=== PATIENT | female | born 1960 | race Caucasian/White ===

== ENCOUNTER 2022-04-15 10:46 | Outpatient (REF) | payer MEDICAID, SELFPAY ==
--- NOTE | ~2022-04-15 | XR_ITS ---
EXAMINATION: XR CERVICAL SPINE CLINICAL INFORMATION: Neck pain. COMPARISON: None TECHNIQUE: 5 views views of the cervical spine were obtained. FINDINGS: There is mild straightening of the cervical lordosis. The vertebral heights are normal. There is grade 1 retrolisthesis of C4 over C5. There is loss of C4-C5, C5-C6 disc levels with moderate ventral spondylosis. No visible acute fracture, dislocation or lytic process is seen. There is left neural foraminal narrowing at C3-C4 and right C5-C6 from uncovertebral hypertrophic changes. No visible acute fracture or dislocation is seen. XR/XR cervical spine 4V IMPRESSION: 1. Degenerative disc changes C4-C5 and C5-C6 disc levels with moderate ventral spondylosis. No visible acute fracture, dislocation or subluxation seen. 2. There is bilateral neural foraminal narrowing as described above. 3. No aggressive lytic or sclerotic process is seen.
== END 2022-04-15 10:47 | disposition home or self-care (01) ==
LOC: HO.XRAY 10:46
PROVIDERS: Absent Provider Internal Medicine Geriatric Medicine; PCP Internal Medicine Geriatric Medicine; Visit Provider Emergency Medicine
DX: M54.2 Cervicalgia (principal)
CPT/HCPCS: 72050

== ENCOUNTER 2023-03-08 06:23 | Day surgery (SDC) | payer OTHER, SELFPAY ==
[2023-03-03 09:44] VITALS: BMI 25.2
--- NOTE | 2023-03-05 07:34 | MHC.SHP ---
Pre-Procedural Eval Section A Date of Service: 03/05/23 The patient is an INPATIENT: No Changes since office visit: No Cold of Flu in the past 2 weeks, No New Medical Problems, No Changes in Medication and No Patient answered all questions The History & Physical has been completed within 30 days and I have reviewed it.: Yes Section B Chief Complaint: Age-related nuclear cataract, right eye Allergies: Allergies Allergy/AdvReac Type Severity Reaction Status Date / Time Penicillins [PENICILLINS] Allergy Intermediate RASH Verified 01/21/23 08:39 sodium pentathol (general AdvReac Intermediate extended Uncoded 01/21/23 08:35 anesth.) time to awaken post anesthesia Plan Diagnosis/Plan: Unchanged I have reviewed the history and physical and performed a pertinent physical examination on my patient. No changes have occurred unless specified. Time Spent With Patient Time: Total time managing care of this patient today ____ minutes.
--- NOTE | 2023-03-05 10:27 | HO.ANESPROP2 ---
Documented by User: Candace Huerta NP 03/05/23 10:27 HPI - Anesthesia Eval Consult details Narrative: 62yo F for Right Cataract Extraction IOL Insertion PCP cleared No previous cataract on record [facility] Past Medical History Medical History (Updated 03/03/23 @ 09:41 by Inna Renteria RN) Arthritis Back pain GERD (gastroesophageal reflux disease) Anxiety Murmur Elevated cholesterol HTN (hypertension) Surgical History Surgical History (Updated 03/03/23 @ 09:41 by Inna Renteria RN) Hx of carpal tunnel repair Hx of elbow surgery H/O colonoscopy Social History Social History Are you a primary child day care center worker to a significant other at home: No Do you presently have visiting nurse or other home services: No Patient Tobacco Use Status: Former Tobacco user Quit Date: 2021 Tobacco use type: Cigarette Years Smoked: 10 Use of substances other than those prescribed or required for medical reasons: Yes Substance Use Frequency: Occasionally Have you been hit, kicked, punched, or otherwise hurt by someone within the past year? If so, by whom?: No Are you DNR?: No Advance Directives: No (fiance is primary contact) Advance Directives Information Provided: Yes (brochure mailed) Advance Directives on File: No Recently lost weight without trying: No Eating poorly because of decreased appetite: No Nutrition Risks: No Nutritional Risk Poor oral hygiene: No Meds Allergies Allergy/AdvReac Type Severity Reaction Status Date / Time Penicillins [PENICILLINS] Allergy Intermediate RASH Verified 01/21/23 08:39 sodium pentathol (general AdvReac Intermediate extended Uncoded 01/21/23 08:35 anesth.) time to awaken post anesthesia Home Medications Medication Instructions Recorded Confirmed Last Taken Type acetaminophen 650 mg 1,300 mg PO Q8H PRN Pain 03/03/23 03/03/23 Unknown History tablet,extended release amlodipine 10 mg tablet 10 mg PO DAILY 03/03/23 03/03/23 03/08/23 History atenolol 50 mg tablet 50 mg PO DAILY 03/03/23 03/03/23 03/08/23 History multivitamin 1 tab PO DAILY 03/03/23 03/03/23 Unknown History mv-min-vit C-ascorb 1 tab PO DAILY 03/03/23 03/03/23 Unknown History Ja-Dan-Evm-herb #124 333 mg-1.7 mg chewable tablet (Airborne (ascorbate sodium)) omeprazole magnesium 20 mg 20 mg PO DAILY PRN Acid Reflux 03/03/23 03/03/23 Unknown History tablet,delayed release (Prilosec OTC) Exam Exam Date and Time: March 05, 2023 1027 Height,Weight and Vital Signs: Height 5 ft 5.5 in Weight 69.853 kg Assessment and Plan Assessment Anesthesia Assessment: Chart Reviewed Documented by User: Milly Samaniego MD 03/08/23 07:27 [facility] Past Medical History Medical History (Updated 03/03/23 @ 09:41 by Inna Renteria RN) Arthritis Back pain GERD (gastroesophageal reflux disease) Anxiety Murmur Elevated cholesterol HTN (hypertension) Family History Family history of problems with anesthesia: No Surgical History Surgical History (Updated 03/03/23 @ 09:41 by Inna Renteria RN) Hx of carpal tunnel repair Hx of elbow surgery H/O colonoscopy History of Problems with Anesthesia: No Social History Social History Are you a primary child day care center worker to a significant other at home: No Do you presently have visiting nurse or other home services: No Patient Tobacco Use Status: Former Tobacco user Quit Date: 2021 Tobacco use type: Cigarette Years Smoked: 10 Use of substances other than those prescribed or required for medical reasons: Yes Substance Use Frequency: Occasionally Have you been hit, kicked, punched, or otherwise hurt by someone within the past year? If so, by whom?: No Are you DNR?: No Advance Directives: No (fiance is primary contact) Advance Directives Information Provided: Yes (brochure mailed) Advance Directives on File: No Recently lost weight without trying: No Eating poorly because of decreased appetite: No Nutrition Risks: No Nutritional Risk Poor oral hygiene: No Meds Allergies Allergy/AdvReac Type Severity Reaction Status Date / Time Penicillins [PENICILLINS] Allergy Intermediate RASH Verified 01/21/23 08:39 sodium pentathol (general AdvReac Intermediate extended Uncoded 01/21/23 08:35 anesth.) time to awaken post anesthesia Home Medications Medication Instructions Recorded Confirmed Last Taken Type acetaminophen 650 mg 1,300 mg PO Q8H PRN Pain 03/03/23 03/03/23 Unknown History tablet,extended release amlodipine 10 mg tablet 10 mg PO DAILY 03/03/23 03/03/23 03/08/23 History atenolol 50 mg tablet 50 mg PO DAILY 03/03/23 03/03/23 03/08/23 History multivitamin 1 tab PO DAILY 03/03/23 03/03/23 Unknown History mv-min-vit C-ascorb 1 tab PO DAILY 03/03/23 03/03/23 Unknown History Ww-Gcm-Jpb-herb #124 333 mg-1.7 mg chewable tablet (Airborne (ascorbate sodium)) omeprazole magnesium 20 mg 20 mg PO DAILY PRN Acid Reflux 03/03/23 03/03/23 Unknown History tablet,delayed release (Prilosec OTC) Exam Airway Mallampati Class: II (missing multiple teeth top and bottom) TM Dist: >3cm Neck ROM: Full Heart: rrr Lungs: cta Assessment and Plan Assessment Anesthesia Assessment: Anesthesia Plan Discussed Final Anesthetic Review Family History of Problems with Anesthesia: No History of Problems with Anesthesia: No NPO: Yes ASA Class: II Final Preanesthetic Review: No Changes in Pt Med Stat, Meds/Allgs Chart Reviewed and Consent Obtained/Reviewed Patient Risk: Intermediate Procedure Risk: Intermediate Anesthetic Plan Anesthetic Plan: MAC: Disposition: Standard PACU
[2023-03-08 07:03] VITALS: BP 143/92; PULSE 65; RESP 18; TEMP 36.1; O2SAT 98; BMI 25.2
[2023-03-08] MEDS: Tetracaine HCl/PF 0.5% Oph Sol 4 ML DROPS 1 DROP EYE-RIGHT (07:13)
[2023-03-08] MEDS: Ketorolac Tromethamine 0.5% Op 5 ML DROPS 1 DROP EYE-RIGHT ×2 (07:14→07:18)
[2023-03-08] MEDS: Phenylephrine HCL 2.5% Oph SoL 2 ML BOTTLE 1 DROP EYE-RIGHT ×3 (07:14→07:19)
[2023-03-08] MEDS: Cyclopentolate 1 % Ophth Sol 2 ML DRPBTL 1 DROP EYE-RIGHT ×3 (07:14→07:20)
[2023-03-08] MEDS: Tropicamide 1 % Ophth Sol 3 ML BTL 1 DROP EYE-RIGHT ×3 (07:15→07:20)
[2023-03-08] MEDS: Lactated Ringers 500 ML 50 ML IV (07:21)
--- NOTE | 2023-03-08 07:53 | HO.PNOPHT ---
Ophthalmology Procedure Procedure Date of Service: 03/08/23 Ophthalmology Viscoelastic: Sukhdeep Brookst Dual Pack Pro Ophthalmology Lenses: TECDORIS [id number] (21) Procedure Notes: PREOPERATIVE DIAGNOSIS: Decreased visual acuity right eye secondary to cataract POSTOPERATIVE DIAGNOSIS: Same PROCEDURE: Right cataract extraction with intraocular lens insertion SURGEON: Mick Buckley M.D. ANESTHESIA: Topical/MAC ESTIMATED BLOOD LOSS: None COMPLICATIONS: None After obtaining informed consent, the patient was brought to the operating room suite and placed in the supine position. After adequate sedation per anesthesia, topical drops of Tetracaine were given to the right eye. The eye was then prepped and draped in the usual sterile fashion. The operating room microscope was then positioned over the operative eye and a lid speculum placed. A paracentesis was created. Viscoelastic was then instilled into the anterior chamber. A three plane incision was then created temporally, utilizing a 2.85 mm keratome. Capsulotomy forceps were then utilized to create a circular tear capsulotomy. Hydrodissection and hydrodelineation were carried out until adequate mobilization of the nucleus occurred. Phacoemulsification was then utilized to remove the dense central nucleus followed by removal of the cortical material utilizing the automated aspiration irrigation unit. Viscoelastic was instilled into the posterior capsular bag followed by placement of a posterior chamber intraocular lens without difficulty. The residual Viscoelastic was then removed utilizing the automated IA machine. The wound was checked and found to be watertight. The patient tolerated the procedure well and the lid speculum was removed. Intracameral injection of Vigamox 0.1 mL followed by a subtenon injection of Kenalog-40 0.2 mL were administered. The patient will be seen in the a.m.
[2023-03-08 08:18] VITALS: BP 127/80; PULSE 58; RESP 16; TEMP 36.1; O2SAT 98
== END 2023-03-08 08:26 | disposition home or self-care (01) ==
PROVIDERS: PCP Internal Medicine Geriatric Medicine; Visit Provider Ophthalmology
PROC: (CPT 66985; principal; 2023-03-08 08:20)
DX: H25.11 Age-related nuclear cataract, right eye (principal); H52.4 Presbyopia; Z83.511 Family history of glaucoma; H18.413 Arcus senilis, bilateral; H43.399 Other vitreous opacities, unspecified eye; R11.2 Nausea with vomiting, unspecified; I10 Essential (primary) hypertension; E78.00 Pure hypercholesterolemia, unspecified; E55.9 Vitamin D deficiency, unspecified; F41.1 Generalized anxiety disorder; Z79.899 Other long term (current) drug therapy; Z88.0 Allergy status to penicillin; Z88.8 Allergy status to other drugs, medicaments and biological substances; Z87.891 Personal history of nicotine dependence
CPT/HCPCS: 66984; J2250; J3301; V2632

== ENCOUNTER 2023-03-22 06:10 | Day surgery (SDC) | payer OTHER, SELFPAY ==
[2023-03-03 09:46] VITALS: BMI 25.2
--- NOTE | 2023-03-19 07:44 | MHC.SHP ---
Pre-Procedural Eval Section A Date of Service: 03/19/23 The patient is an INPATIENT: No Changes since office visit: No Cold of Flu in the past 2 weeks, No New Medical Problems, No Changes in Medication and No Patient answered all questions The History & Physical has been completed within 30 days and I have reviewed it.: Yes Section B Chief Complaint: Age-related nuclear cataract, left eye Allergies: Allergies Allergy/AdvReac Type Severity Reaction Status Date / Time Penicillins [PENICILLINS] Allergy Intermediate RASH Verified 01/21/23 08:39 sodium pentathol (general AdvReac Intermediate extended Uncoded 01/21/23 08:35 anesth.) time to awaken post anesthesia Plan Diagnosis/Plan: Unchanged I have reviewed the history and physical and performed a pertinent physical examination on my patient. No changes have occurred unless specified. Time Spent With Patient Time: Total time managing care of this patient today ____ minutes.
[2023-03-22 06:42] VITALS: BP 121/79; PULSE 64; RESP 18; TEMP 36.7; O2SAT 96
[2023-03-22] MEDS: Tetracaine HCl/PF 0.5% Oph Sol 4 ML DROPS 1 DROP EYE-LEFT (06:45)
[2023-03-22] MEDS: Ketorolac Tromethamine 0.5% Op 5 ML DROPS 1 DROP EYE-LEFT ×3 (06:46→06:56)
[2023-03-22] MEDS: Tropicamide 1 % Ophth Sol 3 ML BTL 1 DROP EYE-LEFT ×3 (06:46→06:56)
[2023-03-22] MEDS: Phenylephrine HCL 2.5% Oph SoL 2 ML BOTTLE 1 DROP EYE-LEFT ×3 (06:46→06:56)
[2023-03-22] MEDS: Cyclopentolate 1 % Ophth Sol 2 ML DRPBTL 1 DROP EYE-LEFT ×3 (06:51→06:56)
[2023-03-22] MEDS: Lactated Ringers 500 ML 50 ML IV (06:58)
--- NOTE | 2023-03-22 07:32 | HO.ANESPROP2 ---
[facility] Past Medical History Medical History Arthritis Back pain GERD (gastroesophageal reflux disease) Anxiety Murmur Elevated cholesterol HTN (hypertension) Family History Family history of problems with anesthesia: No Surgical History Surgical History Hx of carpal tunnel repair Hx of elbow surgery H/O colonoscopy History of Problems with Anesthesia: No Social History Social History Are you a primary adult live in caregiver to a significant other at home: No Do you presently have visiting nurse or other home services: No Patient Tobacco Use Status: Former Tobacco user Quit Date: 2021 Tobacco use type: Cigarette Years Smoked: 10 Use of substances other than those prescribed or required for medical reasons: Yes Substance Use Frequency: Occasionally Have you been hit, kicked, punched, or otherwise hurt by someone within the past year? If so, by whom?: No Are you DNR?: No Advance Directives: No (fiance is primary contact) Advance Directives Information Provided: Yes (brochure mailed) Advance Directives on File: No Recently lost weight without trying: No Eating poorly because of decreased appetite: No Nutrition Risks: No Nutritional Risk Poor oral hygiene: No Meds Allergies Allergy/AdvReac Type Severity Reaction Status Date / Time Penicillins [PENICILLINS] Allergy Intermediate RASH Verified 03/22/23 06:54 sodium pentathol (general AdvReac Intermediate extended Uncoded 03/22/23 06:54 anesth.) time to awaken post anesthesia Active Medications: Current Medications Lactated Ringer's (Lr) 500 mls @ 50 mls/hr IV .Q10H SILVANA Stop: 03/22/23 16:59 Last Admin: 03/22/23 06:58 Dose: 50 mls/hr Povidone Iodine (Povidone Iodine 5 % Ophth Soln 30 Ml Bottle) 1 appl EYE-LEFT PREOP PRN PRN Reason: Pre-Op Surgical Implant Prophy Home Medications Medication Instructions Recorded Confirmed Last Taken Type acetaminophen 650 mg 1,300 mg PO Q8H PRN Pain 03/03/23 03/03/23 Unknown History tablet,extended release amlodipine 10 mg tablet 10 mg PO DAILY 03/03/23 03/03/23 03/22/23 History atenolol 50 mg tablet 50 mg PO DAILY 10/04/1503/03/23 03/22/23 History multivitamin 1 tab PO DAILY 03/03/23 03/03/23 Unknown History mv-min-vit C-ascorb 1 tab PO DAILY 03/03/23 03/03/23 Unknown History Pj-Tpi-Dvn-herb #124 333 mg-1.7 mg chewable tablet (Airborne (ascorbate sodium)) omeprazole magnesium 20 mg 20 mg PO DAILY PRN Acid Reflux 03/03/23 03/03/23 Unknown History tablet,delayed release (Prilosec OTC) Exam Exam Date and Time: March 22, 2023 0732 Height,Weight and Vital Signs: Height 5 ft 5.5 in Weight 69.853 kg Last Vital Signs Temp 98.0 F 03/22/23 06:42 Pulse 64 03/22/23 06:42 Resp 18 03/22/23 06:42 BP 121/79 03/22/23 06:42 Pulse Ox 96 03/22/23 06:42 O2 Del Method Room Air 03/22/23 06:42 Airway Mallampati Class: II TM Dist: >3cm Partial: Upper and Lower Assessment and Plan Assessment Anesthesia Assessment: Anesthesia Plan Discussed and Chart Reviewed Final Anesthetic Review Family History of Problems with Anesthesia: No History of Problems with Anesthesia: No NPO: Yes ASA Class: II Final Preanesthetic Review: No Changes in Pt Med Stat, Meds/Allgs Chart Reviewed, Consent Obtained/Reviewed and Anes Risks/Benef Reviewed Patient Risk: Low Procedure Risk: Low Anesthetic Plan Anesthetic Plan: MAC: Disposition: Standard PACU
--- NOTE | 2023-03-22 07:56 | HO.PNOPHT ---
Ophthalmology Procedure Procedure Date of Service: 03/22/23 Ophthalmology Viscoelastic: Healon Duet Dual Pack Pro Ophthalmology Lenses: TECNIS [id number] (20.5) Procedure Notes: PREOPERATIVE DIAGNOSIS: Decreased visual acuity left eye secondary to cataract POSTOPERATIVE DIAGNOSIS: Same PROCEDURE: Left cataract extraction with intraocular lens insertion SURGEON: Mick Buckley M.D. ANESTHESIA: Topical/MAC ESTIMATED BLOOD LOSS: None COMPLICATIONS: None After obtaining informed consent, the patient was brought to the operation room suite and placed in the supine position. After adequate sedation per anesthesia, topical drops of Tetracaine were given to the left eye. The eye was then prepped and draped in the usual sterile fashion. The operating room microscope was then positioned over the operative eye and a lid speculum placed. A paracentesis was created. Viscoelastic was then instilled into the anterior chamber. A three plane incision was then created temporally, utilizing a 2.85 mm keratome. Capsulotomy forceps were then utilized to create a circular tear capsulotomy. Hydrodissection and hydrodelineation were carried out until adequate mobilization of the nucleus occurred. Phacoemulsification was then utilized to remove the dense central nucleus followed by removal of the cortical material utilizing the automated aspiration irrigation unit. Viscoat elastic was instilled into the posterior capsular bag followed by placement of a posterior chamber intraocular lens without difficulty. The residual Viscoat elastic was then removed utilizing the automated IA machine. The wound was check and found to be watertight. The patient tolerated the procedure well and the lid speculum was removed. Intracameral injection of Vigamox 0.1 mL followed by a subtenon injection of Kenalog-40 0.2 mL were administered. The patient will be seen in the a.m.
[2023-03-22 08:18] VITALS: BP 109/71; PULSE 58; RESP 19; TEMP 36.2; O2SAT 99
== END 2023-03-22 08:27 | disposition home or self-care (01) ==
PROVIDERS: PCP Internal Medicine Geriatric Medicine; Visit Provider Ophthalmology
PROC: (CPT 66985; principal; 2023-03-22 08:00)
DX: H25.12 Age-related nuclear cataract, left eye (principal); H52.4 Presbyopia; Z83.511 Family history of glaucoma; H18.413 Arcus senilis, bilateral; H43.399 Other vitreous opacities, unspecified eye; I10 Essential (primary) hypertension; E78.00 Pure hypercholesterolemia, unspecified; Z79.899 Other long term (current) drug therapy; Z88.0 Allergy status to penicillin; Z88.8 Allergy status to other drugs, medicaments and biological substances; Z87.891 Personal history of nicotine dependence
CPT/HCPCS: 66984; J2250; J3010; J3301; V2788

== ENCOUNTER 2024-07-17 10:58 | Outpatient (REF) | payer MEDICAID, SELFPAY ==
--- OUTSIDE RECORDS SUMMARY | 2024-07-18 12:34 | XMS_ITS | Encounter Summary ---
Author Organization [email or web address] Address [address] [address] Care Team Providers Care Barrel Straightener Name Role Phone Name, Luis Antonio BERRY Primary Care Provider [phone] Reason for Referral * Imaging (Routine) - Closed Specialty Diagnoses / Procedures Referred By Cindi yates Referred To Contact Radiology Diagnoses Breast cancer screening by mammogram Procedures BI Mammogram Screening Tomosynthesis Bilateral Nohemy Torres CNM [address] [place] [address] Phone: tel: fax: [address] Phone: tel: fax: Referral ID Status Reason Start Date Expiration Date Visits Re quested Visits Authorized [id number] Closed 07/17/2024 07/17/2025 1 1 Reason for Visit * Reason Comments Pap Pap/ Pelvic exam Encounter Details Date Type Department Care Team (Latest Contact Info) Description 07/17/2024 10:30 AM EST Procedure Visit [facility] MEDICINE [address] [place], [place] [phone] Nohemy Torres CNM [address] [place], [place] [phone] Cervical cancer screening (Primary Dx); Breast cancer [...] in this encounter Progress Notes * Nohemy Brian, SUJEYM - 07/17/2024 10:30 AM EST Subjective Patient ID: Mildred Treviño is a 64 y.o. female who presents for pap Last visit with wv 07/2020. Pap NIL/HPV negative 07/2019. Mammogram BIRADS 1, cat B 04/2023. She thinks she may have had mammogram at [facility] last year, but not sure. No abnormal pap. 1 AMAB partner x 20y, no safety concerns. Notes lack of interest in sex for several months. Partner also dealing with erectile dysfunction, diabetes and sleep apnea. Able to enjoy sex when she has it, no dryness/pain with sex. No vaginal or urinary symptoms. Occasional vasomotor symptoms, not bothersome. Youngest sonin patient psych after being missing for several months. He has a long history of KATIE. She was understandably upset and affected by him being missing. Feels better now that he is getting help and seem s to be doing well. She feels she is coping okay, has support. Declines [facility] services, but knows shecan call if she needs help. No personal [...] Wt 151 lb 3.2 oz (68.6 kg) BkF050% BMI 24.78 kg/m?? Physical Exam Constitutional: Appearance: [...] and order in case not done at [facility] last year. Report bleeding. Breast cancer [...] Upcoming Encounters Date Type Department Care Team ([facility] st Contact Info) Description 08/29/2024 3:15 PM EDT Office Visit [facility] MEDICINE [address] [place] [address] Name, MD Luis Antonio [address] [place] [address] Scheduled Orders Name Type Priority Associated Diagnoses [...] documented as of this encounter Care Teams Barrel Straightener Relationship Specialty Start Date End Date Name, MD Luis Antonio [address] [place] [address] PCP - General Family Medicine 02/14/19 documented as of this encounter
--- OUTSIDE RECORDS SUMMARY | 2024-07-18 12:34 | XMS_ITS | Clinical Summary ---
Author Organization [employer] Address 75 [facility] 7t [place] [address] Care Team Providers Care Paper Sorter And Counter Name Role Phone Name, Luis Antonio BERRY Primary Care Provider [phone] Allergies Active Allergy Reactions Criticality Noted Date [...] Description 07/17/2024 10:30 AM EST Procedure Visit [address] [address] Nohemy Torres CNM Cervical cancer screening (Primary Dx); Breast cancer screening by mammogram; Decreased libido 07/17/[address] [address] Luis Antonio King MD Referral 07/17/2024 Travel 05/22/[address] [address] Tracey Patel [place] Feb Recall 05/10/2024 1:00 PM EST Office Visit [facility] [address] [place] [address] Glenda Gam[place] DDS Rampant dental caries (Primary Dx); Dental root caries 05/10/[address] [address] Iris Escobedo RN 05/03/2024 2:45 PM EST Office Visit [address] [address] Luis Antonio King MD PE (physical exam), routine (Primary Dx); Chronic neck pain; Benign paroxysmal positional vertigo, unspecified laterality; Situational anxiety; Screening for cervical cancer; Decreased libido; Encounter for screening for malignant neoplasm of colon 05/02/[address] [address] Hailey Charles [place] Chart Prep 04/24/2024 Patient Outreach [address] [address] Luis Antonio King MD Pre-visit Planning (Pre-visit [...] Description 08/29/2024 3:15 PM EDT Office Visit [facility] [address] [place] [address] Name, MD Luis Antonio [address] [place] [address] Health Maintenance Due Date Last Done Comments CT Colonography 1960 Colonoscopy 1960 Colorectal Cancer Screening 1960 FIT DNA/Cologuard 1960 FIT 1960 FOBT 1960 HIV Screening 1960 SDOH Screening 1960 Sigmoidoscopy 1960 Hepatitis [...] 05/03/2025 05/03/2024, 05/03/20 Dental X-Ray: [facility] 05/11/2025 05/10/20, 11/12/2021, 11/30/2018, Additional history exists Tobacco Screening 07/17/2025 07/17/2024 Lipid Panel 07/17/2029 07/17/2024 DTaP/Tdap/Td Vaccines (3 - Td or [...] Procedure Name Priority Date/Time Associated Diagnosis Comments LIPID PANEL, STANDARD Routine 07/17/2024 11:15 AM EST PE (physical exam), routine COMPREHENSIVE METABOLIC PANEL Routine 07/17/2024 11:15 AM EST PE (physical exam), routine CBC WITH AUTO DIFFERENTIAL Routine 07/17/2024 11:15 AM EST PE (physical exam), routine CASE PRESENTATION, DETAILED AND EXTENSIVE TREATMENT PLANNING [...] Recently Relevant to Health Maintenance Results * CBC auto differential (07/17/2024 11:15 AM EST) White Blood Count 8.7 4.8 - 10.8 X10*3/uL [facility] Red Blood Count 4.33 4.20 - 5.50 X10*6/uL [facility] Hemoglobin 13.6 12.0 - 16.0 g/dl [facility] Hematocrit 41.6 37.0 - 47.0 % [facility] Mean Corpuscular Volume 96.1 80.0 - 98.0 fL [facility] Mean Corpuscular Hemoglobin 31.4 27.0 - 33.0 pg [facility] Mean Corpuscular HGB Conc 32.7 31.0 - 35.0 g/dl [facility] Red Cell Distribution Width 12.3 11.0 - 16.0 % [facility] Platelet Count 282 160 - 400 X10*3/uL [facility] Mean Platelet Volume 10.0 9.4 - 12.3 fL [facility] Neutrophils Percent Auto 57.5 45 - 73 % [facility] Imm Gran Pct Auto 0.3 0.0 - 0.4 % [facility] Lymphocytes Percent Auto 33.1 20 - 40 % [facility] Monocytes Percent Auto 7.5 2 - 11 % [facility] Eosinophils Percent Auto 0.9 0 - 4 % [facility] Basophils Percent Auto 0.7 0 - 2 % [facility] NRBC Pct Auto 0.0 0.0 - 0.2 /100WBC [facility] Neutrophils Absolute Auto 5.0 2.0 - 8.3 x10*3/uL [facility] Imm Gran Abs Auto 0.03 0.00 - 0.03 X10*3/uL [facility] Lymphocytes Absolute Auto 2.9 1.2 - 4.9 X10*3/uL [facility] Monocytes Absolute Auto 0.7 0.1 - 1.2 X10*3/uL [facility] Eosinophils Absolute Auto 0.1 0.0 - 0.4 X10*3/uL [facility] Basophils Absolute Auto 0.1 0.0 - 0.2 X10*3/uL [facility] NRBC Abs Auto 0.000 0.0 - 0.012 X10*3/uL [facility] Blood Venous blood specimen / Unknown 07/17/2024 11:15 AM EST 07/17/2024 1:40 PM EST us Luis Antonio Name LAB BLOOD ORDERABLES Final Resul t [facility] [address] [place] [phone] [phone] * (ABNORMAL) Lipid Panel, Standard (07/17/2024 11:15 AM EST) Triglycerides 208(H) <150 mg/dL [facility] Comment:Desirable Triglyceri de: less than 150 mg/dLBorderline High Triglyceride 150-199 mg/dLHigh Triglyceride: 200-499 mg/dLVery High Triglyceride: greater than or equal to 5OO mg/dL Cholesterol 223(H) <200 mg/dL [facility] Comment:Desirable Cholestero l: less than 200 mg/dLBorderline High Cholesterol: 200-239 mg/dLHigh Cholesterol: greater than 239 mg/dL LDL Cholesterol Calculated 126(H) <100 mg/dL [facility] Comment:Desirable LDL: less than 100 mg/dLNear Optimal/Above Optimal LDL: 110- 129 mg/dLBorderline High LDL: 130-159 mg/dLHigh LDL: 160-189 mg/dLVery High LDL: greater than or equal to 190 mg/dL HDL Cholesterol 56 >40 mg/dL [facility] Comment:Desirable HDL: great er than 40 mg/dL Note: This HDL assay may give artificially low results in patients with liver disease. Blood Venous blood specimen / Unknown 07/17/2024 11:15 AM EST 07/17/2024 1:40 PM EST us Luis Antonio King MD LAB BLOOD ORDERABLES Final Resul t [facility] [address] [place] [phone] * Comprehensive Metabolic Panel (07/17/2024 11:15 AM EST) Sodium 143 135 - 145 mmol/L [facility] Potassium 4.1 3.3 - 5.1 mmol/L [facility] Chloride 108 96 - 108 mmol/L [facility] Carbon Dioxide 27 22 - 29 mmol/L [facility] Anion Gap 12 12 - 20 [facility] Urea Nitrogen (BUN) 15 9 - 16 mg/dL [facility] Creatinine, Serum 0.72 0.5 - 1.4 mg/dL [facility] Estimated Glomerular Filt Rate >60 [facility] Comment:Chronic Kidney Disea se: Estimated GFR < 60 mL/min/1.49w4Nvcmrl Kidney Disease: Estimated GFR < 15 mL/min/1.73m2 Glucose 94 60 - 115 mg/dL [facility] Calcium 9.9 8.4 - 10.2 mg/dL [facility] Bilirubin, Total 0.4 0.0 - 1.0 mg/dL [facility] Aspartate Amino Transferase 26 5 - 31 U/L [facility] Alanine Aminotransferase 23 0 - 31 U/L [facility] Total Protein 7.9 6.5 - 8.0 g/dL [facility] Albumin Level 4.3 3.5 - 5.0 g/dL [facility] Alkaline Phosphatase 80 39 - 117 U/L [facility] Blood Venous blood specimen / Unknown 07/17/2024 11:15 AM EST 07/17/2024 1:40 PM EST Luis Antonio King MD LAB BLOOD ORDERABLES Final Resul t [facility] [address] [place] [address] [phone] * Mammography (05/06/2022) Mammogram oerformed Anatomical Region Laterality Modality Other Historical Provider HEALTH MAINTENANCE Final Result * HPV mRNA E6/E7 (07/13/2019 10:10 AM EST) HPV mRNA E6/E7 Not Detected NOT DETECTED [facility] Comment: This test was performed using the APTIMA(R) HPV Assay ([employer] This assay detects E6/E7 viral messenger RNA (mRNA) from 14 high-risk HPV types (16,18,31,33,35,39,45,51, 52,56,58,59,66,68). For additional information please refer to: http://education.Idea.me/faq/ZZB194n9 (This link is being provided for informational/ educational purposes only.) The analytical performance characteristics of this assay have been determined by [employer] [place], [place]. The modifications have not been cleared or approved by the FDA. This assay has been validated pursuant to the CLIA regulations and is used for clinical purposes. Test Performed by Jg Knight, [facility], [address] [place] [address] López Griffin M.D., Ph.D., Director of Laboratories , [facility] [id number] Please note: ??Effective 02/03/2016, HPV testing will be performed using [employer]'s APTIMA test which targets mRNA. Detecting mRNA instead of DNA, as in older methods, offers significant improvements in specificity. 07/13/2019 10:1 0 AM EST us Nohemy Torres CNM HISTORICAL/NON ORDERABLE LABS Final Result [facility] [address] from Last 3 Months or Most Recently Relevant to Health Maintenance Insurance [facility] STAND ADULT Care Teams Paper Sorter And Counter Relationship Specialty Start Date End Date Name, MD Luis Antonio [address] [place] [address] PCP - General Family Medicine 02/14/19
--- OUTSIDE RECORDS SUMMARY | 2024-07-18 12:34 | XMS_ITS | Encounter Summary ---
Author Organization [employer] Address 75 [facility] 7t [place] [address] Care Team Providers Care Radiator Specialist Name Role Phone Name, Luis Antonio BERRY Primary Care Provider [phone] Encounter Details Date Type Department Care Team (Latest Contact Info) Description 02/01/2019 Abstract [facility] CONVERSIONS Dental, Provider, DDS Social History [...] Description 08/29/2024 3:15 PM EDT Office Visit [facility] MEDICINE [address] [place] [address] Name, MD Luis Antonio [address] [place] [address] documented as of this encounter Visit Diagnoses Not on filedocumented in this encounter Care Teams Radiator Specialist Relationship Specialty Start Date End Date Name, MD Luis Antonio [address] [place] [address] PCP - General Family Medicine 02/14/19 documented as of this encounter
--- OUTSIDE RECORDS SUMMARY | 2024-07-18 12:34 | XMS_ITS | Encounter Summary ---
Author Organization [employer] Address 75 [facility] 7t [place] [address] Care Team Providers Care Financial Sales Consultant Name Role Phone Name, Luis Antonio BERRY Primary Care Provider [phone] Encounter Details Date Type Department Care Team (Latest Contact Info) Description 11/12/2021 Abstract [facility] CONVERSIONS Dental, Provider, DDS Social History [...] Description 08/29/2024 3:15 PM EDT Office Visit [facility] MEDICINE [address] [place] [address] Name, MD Luis Antonio [address] [place] [address] documented as of this encounter Visit Diagnoses Not on filedocumented in this encounter Care Teams Financial Sales Consultant Relationship Specialty Start Date End Date Name, MD Luis Antonio [address] [place] [address] PCP - General Family Medicine 02/14/19 documented as of this encounter
--- OUTSIDE RECORDS SUMMARY | 2024-07-18 12:34 | XMS_ITS | Encounter Summary ---
Author Organization [employer] Address 75 [facility] 7t [place] [address] Care Team Providers Care Colon Therapist Name Role Phone Name, Luis Antonio BERRY Primary Care Provider [phone] Encounter Details Date Type Department Care Team [...] Description 08/29/2024 3:15 PM EDT Office Visit [facility] [address] [place] [address] Name, MD Luis Antonio [address] [place] [address] documented as of this encounter Visit Diagnoses Not on filedocumented in this encounter Additional Health Concerns Assessment Noted Time PHQ-9 Depression Total Score: 2 05/03/20 24 3:28 PM EST documented as of this encounter Care Teams Colon Therapist Relationship Specialty Start Date End Date Name, MD Luis Antonio [address] [place] [address] PCP - General Family Medicine 02/14/19 documented as of this encounter
--- OUTSIDE RECORDS SUMMARY | 2024-07-18 12:34 | XMS_ITS | Encounter Summary ---
Author Organization [employer] Address [address] [place] [address] 7[address] [place] [address] Care Team Providers Care Tape Transferrer Name Role Phone Name, Luis Antonio BERRY Primary Care Provider [phone] Reason for Visit * Reason Comments Med Refill Encounter Details Date Type Department Care Team (Late Contact Info) Description 06/01/[address] [facility] MEDICINE [address] [place] [address] Luis Antonio King MD [address] [place] [phone] Chronic diarrhea Social History Tobacco Use Types [...] Description 08/29/2024 3:15 PM EDT Office Visit [facility] MED[facility] [address] [place] [address] Luis Antonio King MD [address] [place] [address] documented as of this encounter Visit Diagnoses Diagnosis Chronic diarrhea Diarrhea documented in this encounter Care Teams Tape Transferrer Relationship Specialty Start Date End Date Luis Antonio King MD [address] [place] [address] PCP - General Family Medicine 02/14/19 documented as of this encounter
--- OUTSIDE RECORDS SUMMARY | 2024-07-18 12:34 | XMS_ITS | Clinical Summary ---
Author Organization [facility] it Address [address] [place] [address] Care Team Providers Care Progress Clerk Name Role Phone Unavailable Primary Care Provider [...] Vaccine (#1) 2024 Breast Cancer Screening 05/12/2025 05/12/20, 05/06/2022, 04/30/2021, Additional history exists RSV Immunization [...] Procedure Name Priority Date/Time Associated Diagnosis Comments [facility] SCREENING DIGITAL Routine 05/12/2023 2:13 PM EST Encounter for screening mammogram for malignant neoplasm of breast from Last 3 Months or Most Recently Relevant to Health Maintenance Results * [facility] SCREENING DIGITAL (05/12/2023 2:13 PM EST) Anatomical Region Laterality Modality Mammography 05/12/2023 11:0 0 AM EST Narrative 05/12/2023 2:13 PM EST [facility] Diagnostic Imaging Department [address] [place] [address] Patient: ??MILDRED RUBALCAVA ?/Age/Sex: 1960 - 63 - F Unit#: ??[id number] ? Location/Status: ??SPDIMAM/REG CLI ? Mnemonic/Ordering Site: ??DIGSC/SPMAM Ordering Physician: ??KATE PARRA MD [facility] Screening Digital - 05/12/23 - 1125 Report Status:Signed EXAM: [facility] Screening Digital EXAM DATE AND TIME: 05/12/2023 11:25 AM HISTORY: ??Screening. COMPARISON: ??05/06/22, 04/30/21, 04/24/20 TECHNIQUE: Bilateral digital breast tomosynthesis was performed in the CC and MLO projections. Computer aided detection with [employer] 3D 3.1 was employed. TISSUE DENSITY: b. [...] Procedure Note Davina Rea MD - 06/29/2023 [facility] Diagnostic Imaging Department [address] [place], [place] [id number] Patient: HUDSONMILDRED /Age/Sex: 1960 - 63 - F Unit#: [id number] [facility]REG CLI Mnemonic/Ordering Site: [facility] Ordering Physician: KATE PARRA MD [facility] Screening Digital - 05/12/23 - 1125 Report Status:Signed EXAM: [facility] Screening Digital EXAM DATE AND TIME: 05/12/2023 11:25 AM HISTORY: Screening. COMPARISON: 05/06/22, 04/30/21, 04/24/20 TECHNIQUE: Bilateral digital breast tomosynthesis was performed in the CCand MLO projections. Computer aided detection with [employer] 3D 3.1was employed. TISSUE DENSITY: b. There [...]
--- OUTSIDE RECORDS SUMMARY | 2024-07-18 12:34 | XMS_ITS | Encounter Summary ---
Author Organization [employer] Address 75 [facility] 7t [place] [address] Care Team Providers Care Pit Operator Name Role Phone Name, Luis Antonio BERRY Primary Care Provider [phone] Encounter Details Date Type Department Care Team (Late st Contact Info) Description 05/05/2022 Orders Only [facility] [address] [place] [address] Ana Gandara LPN Social History Tobacco Use [...] Description 08/29/2024 3:15 PM EDT Office Visit [facility] MEDICINE [address] [place] [address] NameLuis Antonio MD [address] [place] [address] documented as of this encounter Visit Diagnoses Not on filedocumented in this encounter Care Teams Pit Operator Relationship Specialty Start Date End Date Luis Antonio King MD [address] [place] [address] PCP - General Family Medicine 02/14/19 documented as of this encounter
--- OUTSIDE RECORDS SUMMARY | 2024-07-18 12:34 | XMS_ITS | Encounter Summary ---
Author Organization [employer] Address 75 [facility] 7t [place] [address] Care Team Providers Care Trimming Inspector Name Role Phone Name, Luis Antonio BERRY Primary Care Provider [phone] Reason for Visit * Reason Onset Date Comments Referral 07/17/2024 Encounter Details Date Type Department Care Team ([facility] st Contact Info) Description 07/17/2024 Telephone [facility] MEDICINE [address] [place] [address] Name, MD Luis Antonio [address] [place], [place] [phone] Referral Social History Tobacco Use Types Packs/Day [...] encounter Miscellaneous Notes * Telephone Encounter - Chloé Rg RN - 07/17/2024 2:36 PM EST T/C to pt re: referral request. Pt denies any current GI issues or symptoms. Pt states she is requesting a referral to [facility] GI for screening colonoscopy. Advised request will be sent to pcp. * Telephone Encounter - Dawn Olivas - 07/17/2024 1:44 PM EST Patient would need a new referral due to previous one closed. * Telephone Encounter - Deloris Miguel - 07/17/2024 12:18 PM EST Tc from pt requesting referral for [facility] Blister Rust Eradicator. Any questions contact pt. [phone] documented in this encounter Plan of Treatment Upcoming Encounters Date Type Department Care Team (Late st Contact Info) Description 08/29/2024 3:15 PM EDT Office Visit [facility] MEDICINE [address] [place], [place] [phone] Name, MD Luis Antonio [address] [place] [address] documented as of this encounter Visit Diagnoses Not on filedocumented in this encounter Additional Health Concerns Assessment Noted Time PHQ-9 Depression Total Score: 2 05/03/20 24 3:28 PM EST documented as of this encounter Care Teams Trimming Inspector Relationship Specialty Start Date End Date Name, MD Luis Antonio [address] [place] [address] PCP - General Family Medicine 02/14/19 documented as of this encounter
[2024-07-25 10:30] LABS: HPV Genotype 16 Negative (Negative); HPV Genotype 18 Negative (Negative); HPV High Risk Negative (Negative)
== END 2024-07-17 10:59 | disposition home or self-care (01) ==
LOC: HO.LNP 10:58
PROVIDERS: Visit Provider Advanced Practice Midwife
DX: Z12.4 Encounter for screening for malignant neoplasm of cervix (principal); Z11.51 Encounter for screening for human papillomavirus (HPV)
CPT/HCPCS: 87626; 88175

== ENCOUNTER 2024-07-17 11:14 | Outpatient (REF) | payer MEDICAID, SELFPAY ==
--- OUTSIDE RECORDS SUMMARY | 2024-07-17 12:55 | XMS_ITS | Encounter Summary ---
Author Organization [employer] Address [address] [place] [address] Care Team Providers Care Anesthesiologist/Physician Name Role Phone Name, Luis Antonio BERRY Primary Care Provider [phone] Encounter Details Date Type Department Care Team (Latest Contact Info) Description 11/12/2021 Abstract [facility] CONVERSIONS Dental, Provider, DDS Social History Tobacco Use Types Packs/Day Years Used Date Smoking Tobacco: Never Assessed Comments Unknown Sex and Gender Information Value Date Recorded Sex Assigned at Female 03/23/2022 10:20 AM EDT Legal Sex Female 10:20 AM EDT Gender Identity Female 03/23/2022 10:20 AM EDT Sexual Orientation Straight 03/23/2022 10 :20 AM EDT documented as of this encounter Plan of Treatment Upcoming Encounters Date Type Department Care Team (Late st Contact Info) Description 08/29/2024 3:15 PM EDT Office Visit [facility] MEDICINE [address] [place] [address] Name, MD Luis Antonio [address] [place] [address] documented as of this encounter Visit Diagnoses Not on filedocumented in this encounter Care Teams Anesthesiologist/Physician Relationship Specialty Start Date End Date Name, MD Luis Antonio [address] [place] [address] PCP - General Family Medicine 02/14/19 documented as of this encounter
--- OUTSIDE RECORDS SUMMARY | 2024-07-17 12:55 | XMS_ITS | Encounter Summary ---
Author Organization [employer] Address [address] [facility] [address] [place] [address] Care Team Providers Care Artist'S Manager Name Role Phone Name, Luis Antonio BERRY Primary Care Provider [phone] Encounter Details Date Type Department Care Team (Latest Contact Info) Description 07/17/2024 Travel Social History Tobacco Use Types Packs/Day Years Used Date Smoking Tobacco: Former Cigarettes Smokeless Tobacco: Current Alcohol Use Standard Drinks/Week Comments Yes 0 (1 standard drink = 0.6 oz pur e alcohol) one or two at night Depression Answer Date Recorded Patient Health Questionnaire-9 Score 2 05/03/2024 Patient Health Questionnaire-9 Score 2 05/03/2024 Last PHQ-9: Questionnaire Data Not on file 1 07/04/2023 Housing Stability Answer Date Recorded What is your housing situation today? Not on kane e 05/03/[address] you li ve. Do you have problems with any of the following? Mold 05/03/2024 Food Insecurity Answer Date Recorded Within the past 12 months, y ou worried that your food would run out before you got money to buy more: Never True 05/03/2024 Within the past 12 months,th e food you bought just didn't last and you didn't have enough money to get more: Never True 03/2024 Transportation Answer Date Recorded In the past 12 months, has l ack of transportation kept you from medical appts, meetings, work or from getting things needed for daily living? No 05/03/2024 Depression Answer Date Recorded Patient Health Questionnaire-2 Score 0 05/03/2024 Internet Access Answer Date Recorded Internet Access Q1 Yes 05/03/2024 Internet Access Q2 Not on file 05/03/2024 Comments No Sex and Gender Information Value Date Recorded Sex Assigned at Female 03/23/2022 10:20 AM EDT Legal Sex Female 10:20 AM EDT Gender Identity Female 03/23/2022 10:20 AM EDT Sexual Orientation Straight 03/23/2022 10 :20 AM EDT documented as of this encounter Plan of Treatment Upcoming Encounters Date Type Department Care Team (Late st Contact Info) Description 08/29/2024 3:15 PM EDT Office Visit [facility] MEDICINE [address] [place] [address] Name, MD Luis Antonio [address] [place] [address] documented as of this encounter Visit Diagnoses Not on filedocumented in this encounter Additional Health Concerns Assessment Noted Time PHQ-9 Depression Total Score: 2 05/03/20 24 3:28 PM EST documented as of this encounter Care Teams Artist'S Manager Relationship Specialty Start Date End Date Name, MD Luis Antonio [address] [place] [id number] PCP - General Family Medicine 02/14/19 documented as of this encounter
--- OUTSIDE RECORDS SUMMARY | 2024-07-17 12:55 | XMS_ITS | Clinical Summary ---
Author Organization [facility] it Address [address] [place] [address] Care Team Providers Care Meter Maker Name Role Phone Unavailable Primary Care Provider Unavailabl e Social History Tobacco Use Types Packs/Day Years Used Date Smoking Tobacco: Never Assessed Comments Unknown Sex and Gender Information Value Date Recorded Sex Assigned at Not on file Legal Sex Female 7:13 PM EST Gender Identity Not on file Sexual Orientation Not on file Plan of Treatment Health Maintenance Due Date Last Done Comments DTaP,Tdap,and Td Vaccines (1 - Tdap) 1979 Cervical Cancer Screening: Pap Smear 1981 Pneumococcal Vaccine: 50+ Years (1 of 1 - PCV) 2010 Zoster Vaccines (1 of 2) 2010 Colorectal Cancer Screening: Colonoscopy 04/25/2022 Depression Screening 04/25/2022 HIV Screening 04/25/2022 Hepatitis C Screening 04/25/2022 Social Influencers of Health Screening 04/25/2022 COVID-19 Vaccine ( - 2023- season) 2024 Influenza Vaccine (#1) 2024 Breast Cancer Screening 05/12/2025 05/12/20 23, 05/06/2022, 04/30/2021, Additional history exists RSV Immunization Patients 60+ Years Old (1 - 1-dose 75+ series) 2035 HIB Vaccines Aged Out No longer eligi ble based on patient's age to complete this topic HPV Vaccines Aged Out No longer eligi ble based on patient's age to complete this topic Hepatitis A Vaccines Aged Out No long er eligible based on patient's age to complete this topic Hepatitis B Vaccines Aged Out No long er eligible based on patient's age to complete this topic IPV Vaccines Aged Out No longer eligi ble based on patient's age to complete this topic MMR Vaccines Aged Out No longer eligi ble based on patient's age to complete this topic Meningococcal ACWY Vaccine Aged Out N o longer eligible based on patient's age to complete this topic Meningococcal B Vacine Aged Out No lo nger eligible based on patient's age to complete this topic Pneumococcal Vaccine: Pediatrics (0 to 5 Years) and At-Risk Patients (6 to 64 Years) Aged Out No longer eligible based on patient's age to complete this topic RSV Immunization Patients Under 20 months Aged Out No longer eligible based on patient's age to complete this topic Varicella Vaccines Aged Out No longer eligible based on patient's age to complete this topic Procedures Procedure Name Priority Date/Time Associated Diagnosis Comments [facility] SCREENING DIGITAL Routine 05/12/2023 2:13 PM EST Encounter for screening mammogram for malignant neoplasm of breast from Last 3 Months or Most Recently Relevant to Health Maintenance Results * [facility] SCREENING DIGITAL (05/12/2023 2:13 PM EST) Anatomical Region Laterality Modality Mammography 05/12/2023 11:0 0 AM EST Narrative 05/12/2023 2:13 PM EST [facility] Diagnostic Imaging Department [address] [place] [address] Patient: ??MILDRED RUBALCAVA ?/Age/Sex: 1960 - 63 - F Unit#: ??[id number] ? Location/Status: ??SPDIMAM/REG CLI ? Mnemonic/Ordering Site: ??DIGSC/SPMAM Ordering Physician: ??KATE PARRA MD [facility] Screening Digital - 05/12/23 - 1125 Report Status:Signed EXAM: [facility] Screening Digital EXAM DATE AND TIME: 05/12/2023 11:25 AM HISTORY: ??Screening. COMPARISON: ??05/06/22, 04/30/21, 04/24/20 TECHNIQUE: Bilateral digital breast tomosynthesis was performed in the CC and MLO projections. Computer aided detection with Asseta 3D 3.1 was employed. TISSUE DENSITY: b. There are scattered areas of fibroglandular density. FINDINGS: No suspicious masses, grouped microcalcifications, or areas of architectural distortion are seen. The skin and vascularity are unremarkable. IMPRESSION: Stable mammographic appearance of the breasts. ??No evidence of malignancy is seen. A negative mammogram in the presence of a clinically suspicious palpable abnormality does not preclude the possibility of malignancy or alter the indications for biopsy. BI-RADS: ??Category 1: Negative RECOMMENDATION(S): 1: Routine screening mammogram BILATERAL in 1 year. Dictating Physician: ??DAVINA REA MD Electronically Signed by: ??DAVINA REA MD Dic Date/Time: ??05/12/23 1413 Sign date/Time: ??05/12/23 141 Procedure Note Davina Rea MD - 06/29/2023 [facility] Diagnostic Imaging Department [address] [place], [place] [id number] Patient: HUDSONMILDRED /Age/Sex: 1960 - 63 - F Unit#: [id number] [facility]/Ordering Site: [facility] Ordering Physician: KATE PARRA MD [facility] Screening Digital - 05/12/23 - 1125 Report Status:Signed EXAM: [facility] Screening Digital EXAM DATE AND TIME: 05/12/2023 11:25 AM HISTORY: Screening. COMPARISON: 05/06/22, 04/30/21, 04/24/20 TECHNIQUE: Bilateral digital breast tomosynthesis was performed in the CCand MLO projections. Computer aided detection with Asseta 3D 3.1was employed. TISSUE DENSITY: b. There are scattered areas of fibroglandular density. FINDINGS: No suspicious masses, grouped microcalcifications, or areas ofarchitectural distortion are seen. The skin and vascularity are unremarkable. IMPRESSION: Stable mammographic appearance of the breasts. No evidence of malignancyis seen. A negative mammogram in the presence of a clinically suspicious palpable abnormality does not preclude the possibility of malignancy or alter the indications for biopsy. BI-RADS: Category 1: Negative RECOMMENDATION(S): 1: Routine screening mammogram BILATERAL in 1 year. Dictating Physician: DAVINA REA MD Electronically Signed by: DAVINA REA MD Dic Date/Time: 05/12/231412 Sign date/Time: 05/12/231412 Kate Lipscomb MD IMG BI PROCEDURES Fin al Result from Last 3 Months or Most Recently Relevant to Health Maintenance
--- OUTSIDE RECORDS SUMMARY | 2024-07-17 12:55 | XMS_ITS | Clinical Summary ---
Author Organization [employer] Address [address] [facility] 7t [place] [address] Care Team Providers Care Import Specialist Name Role Phone Name, Luis Antonio BERRY Primary Care Provider [phone] Allergies Active Allergy Reactions Criticality Noted Date Comments Propofol 05/10/2024 Penicillin V 07/04/2010 Other reaction(s): unspecified Medications acetaminophen (Tylenol) 500 MG tablet take 1 tablet (500MG) by oral route every 6 hours as needed 2 Active loperamide (Imodium) 2 MG capsuleIndicatio ns:Chronic diarrhea TAKE 1 CAPSULE BY MOUTH TWICE DAILY 30 capsule 3 Active Additional Information Patient not taking.Reported on 05/10/2024 famotidine (Pepcid) 20 MG tabletIndication s:Nausea and vomiting, unspecified vomiting type Take 1 tablet (20 mg) by mouth 2 times daily for 10 days. 20 tablet 3 Active amLODIPine (Norvasc) 10 MG tabletIndication s:Hypertension, unspecified type TAKE 1 TABLET BY MOUTH EVERY DAY 90 tablet 1 4 Active atenolol (Tenormin) 50 MG tabletIndication s:Hypertension, unspecified type TAKE 1 TABLET BY MOUTH EVERY DAY 90 tablet 1 4 Active Active Problems Problem Noted Date Diagnosed Date Preop examination 03/04/2023 Assessment & Plan (03/04/2023 10:35 AM EDT): Patient is low risk for low risk procedure RCRI score is 0, which is 3.9% I advise NPO after midnight the day of the procedure I advise for her to take her blood pressure medication the day of the procedure with small sip of water Nausea & vomiting 03/04/2023 Vitamin D deficiency 05/08/2022 Hyperlipidemia 06/27/2012 Insomnia 07/04/2010 Depressive disorder 03/10/2010 Essential hypertension 02/07/2010 Encounters Date Type Department Care Team Description 07/17/2024 10:30 AM EST Procedure Visit [address] [address] Nohemy Torres CNM Cervical cancer screening (Primary Dx); Breast cancer screening by mammogram; Decreased libido 07/17/[address] [address] Luis Antonio King MD Referral 07/17/2024 Travel 05/22/[address] [address] Tracey Patel MA Feb Recall 05/10/2024 1:00 PM EST Office Visit [facility] [address] [place] [address] Glenda Gamble DDS Rampant dental caries (Primary Dx); Dental root caries 05/10/[address] [address] Iris Escobedo RN 05/03/2024 2:45 PM EST Office Visit [address] [address] Luis Antonio King MD PE (physical exam), routine (Primary Dx); Chronic neck pain; Benign paroxysmal positional vertigo, unspecified laterality; Situational anxiety; Screening for cervical cancer; Decreased libido; Encounter for screening for malignant neoplasm of colon 05/02/[address] [address] Hailey Charles MA Chart Prep 04/24/2024 Patient Outreach [address] [address] Luis Antonio King MD Pre-visit Planning (Pre-visit planning - LVM ) from Last 3 Months Immunizations Name Administration Dates Next Due Hep B, Adolescent or Pediatric 12/15/2010,2010,07/18/2010 Influenza injectable quadriv alent IIV4 with preservative 02/18/2018,04/28/2016,04/30/2015 Influenza injectable quadriv alent preservative free 02/21/2020,03/09/2019 Influenza, IIV3, injectable 02/06/2014 Influenza, Split (incl. [place] antigen) 06/27/2012 MMRV 07/04/2010 Moderna Covid-19 Vaccine 12+ 09/17/2020,08/21/19 21 Tdap 05/03/2024,07/18/2010 Varicella 07/18/2010 Social History Tobacco Use Types Packs/Day Years Used Date Smoking Tobacco: Former Cigarettes Smokeless Tobacco: Current Tobacco Cessation:Ready to Q uit: Not Asked; Counseling Given: Not Answered Alcohol Use Standard Drinks/Week Comments Yes 0 [...] Orientation Straight 03/23/2022 10 :20 AM EDT Last Filed Vital Signs Vital Sign Reading Time Taken Comments Blood Pressure 128/76 07/17/2024 10:32 AM EST Pulse 56 07/17/2024 10:32 AM EST Temperature 36.3 ??C (97.4 ??F) 07/17/2024 10:[address] Respiratory Rate 20 07/17/2024 10:32 AM EST Oxygen Saturation 98% 07/17/2024 10:32 AM EST Inhaled Oxygen Concentration - - Weight 68.6 kg (151 lb 3.2 oz) 07/17/2024 10:32 AM EST Height 166.4 cm (5' 5.5 ) 07/17/2024 10:32 AM ES T Body Mass Index 24.78 07/17/2024 10:32 AM EST Plan of Treatment Upcoming Encounters Date Type Department Care Team (Late st Contact Info) Description 08/29/2024 3:15 PM EDT Office Visit [facility] [address] [place] [address] Name, MD Luis Antonio [address] [place] [address] Health Maintenance Due Date Last Done Comments CT Colonography 1960 Colonoscopy 1960 Colorectal Cancer Screening 1960 FIT DNA/Cologuard 1960 FIT 1960 FOBT 1960 HIV Screening 1960 Lipid Panel 1960 SDOH Screening 1960 Sigmoidoscopy 1960 Hepatitis C Screening 1978 Pap Smear 1981 Pneumococcal Vaccine: 50+ Years (1 of 1 - PCV) 2010 Zoster Vaccines (1 of 2) 09/12/2010 Dental Oral Exam 05/15/2022 11/12/2021, 02/2019, 08/11/2016, Additional history exists Dental Prophylaxis 05/15/2022 11/12/2021, 0 02/01/2019, 06/23/2016, Additional history exists COVID-19 Vaccine ( season) 2024 09/17/2020, 08/20/2020 Influenza Vaccine (#1) 2024 0, 03/09/2019, 02/18/2018, Additional history exists Mammogram 05/06/2024 05/06/2022 Cervical Cancer Screening 07/13/2024 HPV/Cotest 07/13/2024 07/13/2019 Dental X-Ray: Full Mouth 11/13/2024 11/12/2021, 06/25 Alcohol/Substance Use Screening 05/03/2025 05/03/2024 Depression Screening 05/03/2025 05/03/2024, 05/03/20 Dental X-Ray: Bitewings 05/11/2025 05/10/20 24, 11/12/2021, 11/30/2018, Additional history exists Tobacco Screening 07/17/2025 07/17/2024 DTaP/Tdap/Td Vaccines (3 - Td or Tdap) 05/03/2034 05/03/2024, 07/18/2010 RSV Patients and Patients Aged 60 years or older (1 - 1-dose 75+ series) 2035 Hepatitis B Vaccines Aged Out 12/15/2010, 08/14/2010, 07/18/2010 No longer eligible based on patient's age to complete this topic HIB Vaccines Aged Out No longer eligi [...] patient's age to complete this topic Meningococcal Vaccine Aged Out No jelani eber eligible based on patient's age to complete this topic RSV under 20 months Aged Out No longe r eligible based on patient's age to complete this topic Rotavirus Vaccines Aged Out No longer eligible based on patient's age to complete this topic Procedures Procedure Name Priority Date/Time Associated Diagnosis Comments CASE PRESENTATION, DETAILED AND EXTENSIVE TREATMENT PLANNING Routine 05/10/2024 1:00 PM EST Rampant dental caries Dental root caries BITEWING - SINGLE RADIOGRAPHIC IMAGE Routine 05/10/2024 1:00 PM EST Rampant dental caries Dental root caries INTRAORAL - PERIAPICAL FIRST RADIOGRAPHIC IMAGE Routine 05/10/2024 1:00 PM EST Rampant dental caries Dental root caries 15 PALLIATIVE (EMERGENCY) TREATMENT OF DENTAL PAIN - MINOR PROCEDURE Routine 05/10/2024 1:00 PM EST Rampant dental caries Dental root caries HM MAMMOGRAPHY Routine 05/06/2022 PROPHYLAXIS - ADULT Routine 11/12/2021 1 2:00 AM EDT INTRAORAL - COMPLETE SERIES OF RADIOGRAPHIC IMAGES Routine 11/12/2021 12:00 AM EDT PERIODIC ORAL EVALUATION - ESTABLISHED PATIENT Routine 11/12/2021 12:00 AM EDT ZZZ HISTORICAL HPV MRNA E6/E7 Routine 07/13/2019 10:10 AM EST from Last 3 Months or Most Recently Relevant to Health Maintenance Results * Mammography (05/06/2022) Mammogram oerformed Anatomical Region Laterality Modality Other us Historical Provider MD HEALTH MAINTENANCE Final Result * HPV mRNA E6/E7 (07/13/2019 10:10 AM EST) HPV mRNA E6/E7 Not Detected NOT DETECTED [facility] Comment: This test was performed using the APTIMA(R) HPV Assay ([employer] This assay detects E6/E7 viral messenger RNA (mRNA) from 14 high-risk HPV types (16,18,31,33,35,39,45,51, 52,56,58,59,66,68). For additional information please refer to: http://education.eCareer/faq/ITJ058l7 (This link is being provided for informational/ educational purposes only.) The analytical performance characteristics of this assay have been determined by [employer] [place], [place]. The modifications have not been cleared or approved by the FDA. This assay has been validated pursuant to the CLIA regulations and is used for clinical purposes. Test Performed by [employer] [facility], [address] [place] [address] López Griffin M.D., Ph.D., Director of Laboratories , CLIA [id number] Please note: ??Effective 02/03/2016, HPV testing will be performed using [employer]'s APTIMA test which targets mRNA. Detecting mRNA instead of DNA, as in older methods, offers significant improvements in specificity. 07/13/2019 10:1 0 AM EST us Nohemy Torres CNM HISTORICAL/NON ORDERABLE LABS Final Result [facility] [address] from Last 3 Months or Most Recently Relevant to Health Maintenance Insurance [facility] [facility] MEDICAID [address] [place] [id number] Care Teams Import Specialist Relationship Specialty Start Date End Date Name, MD Luis Antonio [address] [place] [address] PCP - General Family Medicine 02/14/19
--- OUTSIDE RECORDS SUMMARY | 2024-07-17 12:55 | XMS_ITS | Encounter Summary ---
Author Organization [employer] Address [address] [address] Care Team Providers Care House Visitor Name Role Phone Name, Luis Antonio BERRY Primary Care Provider [phone] Reason for Referral * Imaging (Routine) - Pending Review Specialty Diagnoses / Procedures Referred By Cindi yates Referred To Contact Radiology Diagnoses Breast cancer screening by mammogram Procedures BI Mammogram Screening Tomosynthesis Bilateral Nohemy Torres CNM [address] [place] [address] Phone: tel: fax: [address] Phone: tel: fax: Referral ID Status Reason Start Date Expiration Date V isits Requested Visits Authorized [id number] Pending Review 07/17/2024 07/17/2025 1 1 Reason for Visit * Reason Comments Pap Pap/ Pelvic exam Encounter Details Date Type Department Care Team (Latest Contact Info) Description 07/17/2024 10:30 AM EST Procedure Visit [facility] [address] [place], [place] [phone] Nohemy Torres CNM [address] [place], [place] [phone] Cervical cancer screening (Primary Dx); Breast cancer screening by mammogram; Decreased libido Social History Tobacco Use Types Packs/Day Years [...] AM EDT documented as of this encounter Last Filed Vital Signs Vital Sign Reading [...] Mass Index 24.78 07/17/2024 10:32 AM EST documented in this encounter Progress Notes * Nohemy Torres, PARRIS - 07/17/2024 10:30 AM EST Subjective Patient ID: Mildred Treviño is a 64 y.o. female who presents for pap Last visit with ar 07/2020. Pap NIL/HPV negative 07/2019. Mammogram BIRADS 1, cat B 04/2023. She thinks she may have had mammogram at [facility] last year, but not sure. No abnormal pap. 1 AMAB partner x 20y, no safety concerns. Notes lack of interest in sex for several months. Partner also dealing with erectile dysfunction, diabetes and sleep apnea. Able to enjoy sex when she has it, no dryness/pain with sex. No vaginal or urinary symptoms. Occasional vasomotor symptoms, not bothersome. Youngest son in patient psych after being missing for several months. He has a long history of KATIE. She was understandably upset and affected by him being missing. Feels better now that he is getting help and seems to be doing well. She feels she is coping okay, has support. Declines [facility] services, but knows she can call if she needs help. No personal fracture, no parental hip fracture. Review of Systems Genitourinary: Negative for dyspareunia, dysuria, frequency, genital sores, hematuria, menstrual problem, pelvic pain, urgency, vaginal bleeding, vaginal discharge and vaginal pain. No abnormal pap, no abnormal bleeding, no breast pain, no breast mass, no nipple discharge Objective BP 128/76 (BP Location: Left arm, Patient Position: Sitting, BP Cuff Size: Adult) Pulse 56 Temp97.4 ??F (36.3 ??C) (Temporal) Resp 20 Ht 5' 5.5 (1.664 m) Wt 151 lb 3.2 oz (68.6 kg) EsJ157% BMI 24.78 kg/m?? Physical Exam Constitutional: Appearance: Normal appearance. Chest: Breasts: Right: Normal. No swelling, bleeding, inverted nipple, mass, nipple discharge, skin change or tenderness. Left: Normal. No swelling, bleeding, inverted nipple, mass, nipple discharge, skin change or tenderness. Genitourinary: General: Normal vulva. Labia: Right: No rash, tenderness, lesion or injury. Left: No rash, tenderness, lesion or injury. Vagina: Normal. No signs of injury and foreign body. No vaginal discharge, erythema, tenderness, bleeding or lesions. Cervix: No cervical motion tenderness, discharge, friability, lesion, erythema, cervical bleeding or eversion. Uterus: Normal. Not enlarged and not tender. Adnexa: Right adnexa normal and left adnexa normal. Right: No mass, tenderness or fullness. Left: No mass, tenderness or fullness. Comments: Ovaries non palpable bilaterally. Fair tone with Kegels, no prolapse with Valsalva. Lymphadenopathy: Upper Body: Right upper body: No supraclavicular or axillary adenopathy. Left upper body: No supraclavicular or axillary adenopathy. Neurological: Mental Status: She is alert. Psychiatric: Mood and Affect: Mood normal. Behavior: Behavior normal. Assessment/Plan Diagnoses and all orders for this visit: Cervical cancer screening - Pap Smear Cotest today. Repeat 5 years if normal/HPV neg. Will contact with results. HANK end of this year. Routine mammography. Will request records and order in case not done at [facility] last year. Report bleeding. Breast cancer screening by mammogram - BI Mammogram Screening Tomosynthesis Bilateral; Future Decreased libido This seems to be directly related to son's disappearance and mental health issues. She is feeling less stressed overall now that he is safe and engaged in care. Reviewed impact of life stressors on libido as well as responsive vs spontaneous desire. Also discussed impact of partner's health issues. Trial scheduling sex, experiment with sex that doesn't involve penile/vaginal penetration. If not helpful, please let me know. If dryness/pain or lack of enjoyment with sex, may benefit from trial of vaginal estrogen, but that doesn't seem to be the issue at this time. documented in this encounter Plan of Treatment Upcoming Encounters Date Type Department Care Team ([facility] st Contact Info) Description 08/29/2024 3:15 PM EDT Office Visit [facility] [address] [place] [address] NameLuis Antonio MD [address] [place] [address] Scheduled Orders Name Type Priority Associated Diagnoses Order Schedule Pap Smear Pathology and Cytology Routine Cervical cancer screening Ordered: 07/17/2024 BI Mammogram Screening Tomosynthesis Bilateral Imaging Routine Breast cancer screening by mammogram Expected: 07/17/2024, Expires: 09/14/2025 documented as of this encounter Visit Diagnoses Diagnosis Cervical cancer screening- Primary Screening for malignant neoplasm of the cervix Breast cancer screening by mammogram Decreased libido documented in this encounter Additional Health Concerns Assessment Noted Time PHQ-9 Depression Total Score: 2 05/03/20 24 3:28 PM EST documented as of this encounter Care Teams House Visitor Relationship Specialty Start Date End Date Name, MD Luis Antonio [address] [place] [phone] PCP - General Family Medicine 02/14/19 documented as of this encounter
--- OUTSIDE RECORDS SUMMARY | 2024-07-17 12:55 | XMS_ITS | Encounter Summary ---
Author Organization [employer] Address [address] [facility] 7t [place] [address] Care Team Providers Care Computer Education Teacher Name Role Phone Name, Luis Antonio BERRY Primary Care Provider [phone] Encounter Details Date Type Department Care Team (Latest Contact Info) Description 02/01/2019 Abstract [facility] CONVERSIONS Dental, Provider, DDS Social History Tobacco [...] Description 08/29/2024 3:15 PM EDT Office Visit [facility] [address] [place] [address] Name, MD Luis Antonio [address] [place] [address] documented as of this encounter Visit Diagnoses Not on filedocumented in this encounter Care Teams Computer Education Teacher Relationship Specialty Start Date End Date Name, MD Luis Antonio [address] [place] [address] PCP - General Family Medicine 02/14/19 documented as of this encounter
--- OUTSIDE RECORDS SUMMARY | 2024-07-17 12:55 | XMS_ITS | Encounter Summary ---
Author Organization [employer] Address [address] [facility] 7t [place] [address] Care Team Providers Care Field Radio Technician Name Role Phone Name, Luis Antonio BERRY Primary Care Provider [phone] Reason for Visit * Reason Onset Date Comments Referral 07/17/2024 Encounter Details Date Type Department Care Team ([facility] st Contact Info) Description 07/17/2024 Telephone [facility] [address] [place] [address] Name, MD Luis Antonio [address] [place], [place] [phone] Referral Social History Tobacco Use Types Packs/Day Years [...] AM EDT documented as of this encounter Miscellaneous Notes * Telephone Encounter - Deloris Miguel - 07/17/2024 12:18 PM EST Tc from pt requesting referral for [facility] Yarn Dumper. Any questions contact pt. [phone] documented in this encounter Plan of Treatment Upcoming Encounters Date Type Department Care Team (Late st Contact Info) Description 08/29/2024 3:15 PM EDT Office Visit [facility] [address] [place] [address] Name, MD Luis Antonio [address] [place] [address] documented as of this encounter Visit Diagnoses Not on filedocumented in this encounter Additional Health Concerns Assessment Noted Time PHQ-9 Depression Total Score: 2 05/03/20 24 3:28 PM EST documented as of this encounter Care Teams Field Radio Technician Relationship Specialty Start Date End Date Name, MD Luis Antonio [address] [place] [address] PCP - General Family Medicine 02/14/19 documented as of this encounter
--- OUTSIDE RECORDS SUMMARY | 2024-07-17 12:55 | XMS_ITS | Encounter Summary ---
Author Organization [employer] Address [address] [place] [address] 7[address] [place] [address] Care Team Providers Care Tissue Inserter Name Role Phone Name, Luis Antonio BERRY Primary Care Provider [phone] Reason for Visit * Reason Comments Med Refill Encounter Details Date Type Department Care Team (Late Contact Info) Description 06/01/2022 Refill [facility] MEDICINE [address] [place] [address] Luis Antonio King MD [address] [place] [phone] Chronic diarrhea Social History Tobacco Use Types Packs/Day Years [...] Encounters Date Type Department Care Team (Late Contact Info) Description 08/29/2024 3:15 PM EDT Office Visit [facility] MEDICINE [address] [place] [address] Luis Antonio King MD [address] [place] [address] documented as of this encounter Visit Diagnoses Diagnosis Chronic diarrhea Diarrhea documented in this encounter Care Teams Tissue Inserter Relationship Specialty Start Date End Date Luis Antonio King MD [address] [place] [address] PCP - General Family Medicine 02/14/19 documented as of this encounter
--- OUTSIDE RECORDS SUMMARY | 2024-07-17 12:55 | XMS_ITS | Encounter Summary ---
Author Organization [employer] Address 75 [facility] 7t [place] [address] Care Team Providers Care Manufacturing Clerk Name Role Phone Name, Luis Antonio BERRY Primary Care Provider [phone] Encounter Details Date Type Department Care Team (Late st Contact Info) Description 05/05/2022 Orders Only [facility] [address] [place] [address] Ana Gandara LPN Social History Tobacco Use Types Packs/Day Years [...] Description 08/29/2024 3:15 PM EDT Office Visit [facility] MEDICINE [address] [place] [address] NameLuis Antonio MD [address] [place] [address] documented as of this encounter Visit Diagnoses Not on filedocumented in this encounter Care Teams Manufacturing Clerk Relationship Specialty Start Date End Date Luis Antonio King MD [address] [place] [address] PCP - General Family Medicine 02/14/19 documented as of this encounter
[2024-07-17 13:43] LABS: MANUAL DIFF FLAG NO
[2024-07-17 13:57] LABS: Basophils Absolute Auto 0.1 X10*3/uL (0.0-0.2); Basophils Percent Auto 0.7 % (0-2); Eosinophils Absolute Auto 0.1 X10*3/uL (0.0-0.4); Eosinophils Percent Auto 0.9 % (0-4); Hematocrit 41.6 % (37.0-47.0); Hemoglobin 13.6 g/dl (12.0-16.0); Imm Gran Abs Auto 0.03 X10*3/uL (0.00-0.03); Imm Gran Pct Auto 0.3 % (0.0-0.4); Lymphocytes Absolute Auto 2.9 X10*3/uL (1.2-4.9); Lymphocytes Percent Auto 33.1 % (20-40); Mean Corpuscular HGB Conc 32.7 g/dl (31.0-35.0); Mean Corpuscular Hemoglobin 31.4 pg (27.0-33.0); Mean Corpuscular Volume 96.1 fL (80.0-98.0); Monocytes Absolute Auto 0.7 X10*3/uL (0.1-1.2); Monocytes Percent Auto 7.5 % (2-11); Neutrophils Percent Auto 57.5 % (45-73); Platelet Count 282 X10*3/uL (160-400); Red Blood Count 4.33 X10*6/uL (4.20-5.50); Red Cell Distribution Width 12.3 % (11.0-16.0); White Blood Count 8.7 X10*3/uL (4.8-10.8)
[2024-07-17 14:12] LABS: Alanine Aminotransferase 23 U/L (0-31); Albumin Level 4.3 g/dL (3.5-5.0); Alkaline Phosphatase 80 U/L (39-117); Anion Gap 12 (12-20); Aspartate Amino Transferase 26 U/L (5-31); Bilirubin Total 0.4 mg/dL (0.0-1.0); Blood Urea Nitrogen 15 mg/dL (9-16); Calcium 9.9 mg/dL (8.4-10.2); Carbon Dioxide 27 mmol/L (22-29); Chloride 108 mmol/L (96-108); Cholesterol 223 mg/dL (<200); Estimated Glomerular Filt Rate > 60; Glucose Random 94 mg/dL (60-115); HDL Cholesterol 56 mg/dL (>40); LDL Cholesterol Calculated 126 mg/dL (<100); Potassium 4.1 mmol/L (3.3-5.1); Sodium 143 mmol/L (135-145); Total Protein 7.9 g/dL (6.5-8.0); Triglycerides 208 mg/dL (<150)
== END 2024-07-17 11:15 | disposition home or self-care (01) ==
LOC: HO.HHCL 11:14
PROVIDERS: Visit Provider Internal Medicine Geriatric Medicine
DX: Z00.00 Encounter for general adult medical examination without abnormal findings (principal)
CPT/HCPCS: 36415; 80053; 80061; 85025

== ENCOUNTER 2025-01-24 15:20 | Outpatient (REF) | payer MEDICAID, SELFPAY ==
--- NOTE | ~2025-01-24 | XR_ITS ---
EXAMINATION: XR FOOT, RIGHT CLINICAL INFORMATION: Right foot pain after trauma about a month ago COMPARISON: None available. TECHNIQUE: AP, lateral, and oblique views of the right foot. FINDINGS: No fracture, dislocation, or suspicious bone lesion. There is been a prior bunionectomy involving the first metatarsal head. Joint spaces appear preserved. There is a normal plantar arch. The midfoot and hindfoot appear normal. There is no soft tissue abnormality. XR/XR foot RT min 3V IMPRESSION: No acute bony abnormalities of the right foot. Electronically signed by: Kyrie Rojo MD 01/24/2025 03:54 PM EDT
--- NOTE | ~2025-01-24 | XR_ITS ---
EXAMINATION: XR CERVICAL SPINE CLINICAL INFORMATION: pain COMPARISON: 04/15/2022. TECHNIQUE: 3 views of the cervical spine were obtained. FINDINGS: Normal lordosis. No scoliosis. No fracture, compression deformity, or suspicious bone lesion. C1-2 articulation and craniocervical junction are intact and aligned. Normal facet alignment. Multilevel hypertrophic degenerative facet changes are present. There is disc space narrowing, moderate, at C4-5, C5-6, and C6-7. Disc spaces otherwise appear preserved. There is a 2 mm degenerative anterolisthesis of C3 on C4. No additional subluxation. The pre and paravertebral soft tissues are normal. The lung apices are clear. XR/XR cervical spine 4V IMPRESSION: 1. No acute finding of the cervical spine. 2. Moderate degenerative spondylosis most significant spanning C4-C7. This appears slightly advanced from 2021. Electronically signed by: Kyrie Rojo MD 01/24/2025 04:01 PM EDT
--- OUTSIDE RECORDS SUMMARY | 2025-01-24 14:30 | XMS_ITS | Encounter Summary ---
Author Organization [employer] Address [address] [facility] [address] [place] [address] Care Team Providers Care Swager Operator Name Role Phone Luis Antonio King MD Primary Care Provider [phone] Reason for Referral * Consultation (Routine) - Pending Review Specialty Diagnoses / Procedures Referred By Cindi yates Referred To Contact Physical Therapy Diagnoses Benign paroxysmal positional vertigo, unspecified laterality Luis Antonio King MD [address] [place] [id number] Phone: tel: fax: Referral ID Status Reason Start Date Expiration Date Visits Requested Visits Authorized [id number] Pending Review Specialty Services Required 01/24/2025 01/24/2026 1 1 Reason for Visit * Reason Comments Follow-up Encounter Details Date Type Department Care Team (Late st Contact Info) Description 01/24/2025 2:30 PM EDT Office Visit [facility] [address] [place] [id number] [phone] Luis Antonio King MD [address] [place] [id number] Benign paroxysmal positional vertigo, unspecified laterality (Primary Dx); Right foot pain; Tooth decay Social History Tobacco Use Types Packs/Day Years [...] Recorded What is your housing situation today? I am not s ure 01/24/[address] you li ve. Do you have problems with any of the following? Mold 01/24/2025 Food Insecurity Answer Date Recorded Within the [...] things needed for daily living? No 05/03/2024 Utilities Answer Date Recorded In the past 12 months, has t he electric, gas, oil or water company threatened to shut off services in your home? No 01/24/2025 Depression Answer Date Recorded Patient Health Questionnaire-2 [...] Sign Reading Time Taken Comments Blood Pressure 122/82 01/24/2025 2:48 PM EDT Pulse 79 01/24/2025 2:48 PM EDT Temperature 36.9 C (98.4 F) 01/24/2025 2:48 PM EDT Respiratory Rate 16 01/24/2025 2:48 PM EDT Oxygen Saturation 98% 01/24/2025 2:48 PM EDT Inhaled Oxygen Concentration - - Weight 66 kg (145 lb 6.4 oz) 01/24/2025 2:48 PM EDT Height 165.1 cm (5' 5 ) 01/24/2025 2:48 PM EDT Body Mass Index 24.2 01/24/2025 2:48 PM EDT documented in this encounter Progress Notes * Luis Antonio King MD - 01/24/2025 2:30 PM EDT Subjective Patient ID: Mildred Treviño is a 64 y.o. female who presents for Follow-up. Patient comes for a follow-up visit. She has benign positional paroxysmal vertigo. She denies any vertigo today but she is still having recurrent episodes associated with movements of the head. Recent ultrasound of the neck and MRI of the brain were unremarkable. Meclizine helps but she only use itat bedtime because of drowsiness and her work involves operating machinery. I suggested referral tovestibular therapy and she agreed. She tried vestibular therapy in the past with improvement of hersymptoms. She has several months of right foot pain after trauma. She believes she might have fracture her right middle toe. Pain is not severe at the moment. She describes difficulties wearing closed shoes because of the discomfort. Patient has very poor dentition. She has multiple crowns that require replacement. She has been diagnosed with gum disease in the past. She is on a waiting list to see a dentist. Review of Systems Constitutional: Negative for chills and fever. HENT: Negative for sore throat. Respiratory: Negative for cough, shortness of breath and wheezing. Cardiovascular: Negative for chest pain, palpitations and leg swelling. Gastrointestinal: Negative for abdominal pain. Musculoskeletal: See HPI. Chronic recurrent neck pain likely related to DJD. Psychiatric/Behavioral: The patient is nervous/anxious. The patient has caregiver stress. She has been worried about the medical problems of her tsskfe-nl-oln that has severe dementia. Her zvdeni-rv-mzz is currently hospitalized. I offered the patient referral to behavioral health but for now she told me she is coping well and she is not interested. Sheagreed to let me know if she changes her mind. Objective Vitals: 01/24/25 1448 BP: 122/82 BP Location: Left arm Patient Position: Sitting BP Cuff Size: Adult Pulse: 79 Resp: 16 Temp: 98.4 ??F (36.9 ??C) TempSrc: Oral SpO2: 98% Weight: 145 lb 6.4 oz (66 kg) Height: 5' 5 (1.651 m) Physical Exam Constitutional: Appearance: Normal appearance. HENT: Mouth/Throat: Dentition: Dental caries present. No gingival swelling, dental abscesses or gum lesions. Cardiovascular: Rate and Rhythm: Normal rate and regular rhythm. Heart sounds: No murmur heard. No gallop. Pulmonary: Effort: Pulmonary effort is normal. No respiratory distress. Breath sounds: Normal breath sounds. No wheezing. Musculoskeletal: Right lower leg: No edema. Left lower leg: No edema. Feet: Comments: Slight swelling of the right middle toe with discomfort on palpation. Neurological: General: No focal deficit present. Mental Status: She is alert. Motor: No weakness. Assessment/Plan Diagnoses and all orders for this visit: Benign paroxysmal positional vertigo, unspecified laterality Comments: Continue meclizine at bedtime as needed. Referral to vestibular therapy. Orders: - Referral to Physical Therapy; Future Right foot pain Comments: Meloxicam for pain. I recommended to use with meals. Evaluation with foot x-ray to rule out fracture. Orders: - XR Foot 3+ Views Right; Future - meloxicam (Mobic) 7.5 MG tablet; Take 1 tablet (7.5 mg) by mouth if needed each day for moderate pain. Tooth decay Comments: I recommended Peridex mouthwash. She is already on a waiting list to see a dentist. Other orders - chlorhexidine (Peridex) 0.12 % solution; Use 15 mL in the mouth or throat if needed for wound care for up to 14 days. documented in this encounter Plan of Treatment Scheduled Referrals Name Type Priority Associated Diagnoses Orde r Schedule Referral to Physical Therapy Outpatient Referral Routine Benign paroxysmal positional vertigo, unspecified laterality Expected: 01/24/2025 (Approximate), Expires: 01/24/2026 documented as of this encounter Procedures Procedure Name Priority Date/Time Associated Diagnosis Comments XR FOOT 3+ VIEWS RIGHT Routine 01/24/2025 2:53 PM EDT Right foot pain documented in this encounter Results * XR Foot 3+ Views Right (01/24/2025 2:53 PM EDT) Anatomical Region Laterality Modality Lower Extremities, Foot Right [facility] 01/24/2025 2:53 PM EDT Narrative 01/24/2025 3:57 PM EDT [address] [address] XRay Report Signed Patient: Mildred Treviño MR#: [id number] 7 : 1960 Acct:[id number] Age/Sex: 64 / F ADM Date: 01/24/25 Loc: [facility] Attending Dr: Guadalupe Lipscomb MD Ordering Physician: Luis Antonio King MD Date of Service: 01/24/25 Procedure(s): XR foot RT min 3V Accession Number(s): [id number] cc: Guadalupe Rodriguez MD; Name,Luis Antonio BERRY Reason for Exam: Right foot pain after trauma about a month ago EXAMINATION: XR FOOT, RIGHT CLINICAL INFORMATION: Right foot pain after trauma about a month ago COMPARISON: None available. TECHNIQUE: AP, lateral, and oblique views of the right foot. FINDINGS: No fracture, dislocation, or suspicious bone lesion. There is been a prior bunionectomy involving the first metatarsal head. Joint spaces appear preserved. There is a normal plantar arch. The midfoot and hindfoot appear normal. There is no soft tissue abnormality. XR/XR foot RT min 3V IMPRESSION: No acute bony abnormalities of the right foot. Electronically signed by: Kyrie Rojo MD 01/24/2025 03:54 PM EDT Dictated By: Kyrei Rojo MD Signed By: <Electronically signed by Kyrie Rojo MD in OV> 01/24/25 1554 DD/ 1453 TD/TT: 01/24/25 [address]: Procedure Note Donotuseinterpreter, Image - 01/24/[address] [address] XRay Report Signed Patient: Mildred Treviño FMR#: [id number] 7 : 1960Acct:[id number] Age/Sex: 64 / FADM Date: 01/24/25 Loc: [facility] Attending Dr: Guadalupe Lipscomb MD Ordering Physician: Luis Antonio King MD Date of Service: 01/24/25 Procedure(s): XR foot RT min 3V Accession Number(s): [id number] cc: Guadalupe Rodriguez MD; Name,Luis Antonio BERRY Reason for Exam: Right foot pain after trauma about a month ago EXAMINATION: XR FOOT, RIGHT CLINICAL INFORMATION: Right foot pain after trauma about a month ago COMPARISON: None available. TECHNIQUE: AP, lateral, and oblique views of the right foot. FINDINGS: No fracture, dislocation, or suspicious bone lesion. There is been a prior bunionectomy involving the first metatarsal head. Joint spaces appear preserved. There is a normal plantar arch. The midfoot and hindfoot appear normal. There is no soft tissue abnormality. XR/XR foot RT min 3V IMPRESSION: No acute bony abnormalities of the right foot. Electronically signed by: Kyrie Rojo MD 01/24/2025 03:54 PM EDT Dictated By: Kyrie Rojo MD Signed By: <Electronically signed by Kyrie Rojo MD in OV> 01/24/25 1554 DD/ 1453 TD/TT: 01/24/25 [address]: Luis Antonio King MD IMG XR PROCEDURES Final Result documented in this encounter Visit Diagnoses Diagnosis Benign paroxysmal positional vertigo, unspecified laterality- Primary Right foot pain Pain in soft tissues of limb Tooth decay Unspecified dental caries documented in this encounter Additional Health Concerns Assessment Noted Time PHQ-9 Depression Total Score: 2 05/03/20 24 3:28 PM EST documented as of this encounter Care Teams Swager Operator Relationship Specialty Start Date End Date Name, MD Luis Antonio [address] [place] [phone] PCP - General Family Medicine 02/14/19 documented as of this encounter
[2025-01-24 17:24] LABS: Folate 14.2 ng/mL (> or = 4.0); Vitamin B12 746 pg/mL (200-900)
--- OUTSIDE RECORDS SUMMARY | 2025-01-24 17:25 | XMS_ITS | Encounter Summary ---
Author Organization [employer] Address [address] [facility] [address] [place] [address] Care Team Providers Care Interior Plant Caretaker Name Role Phone Name, Luis Antonio BERRY Primary Care Provider [phone] Encounter Details Date Type Department Care Team (Latest Contact Info) Description 02/01/2019 Abstract [facility] CONVERSIONS Dental, Provider, DDS Social History [...] as of this encounter Plan of Treatment Not on file documented as of this encounter Visit Diagnoses Not on filedocumented in this encounter Care Teams Interior Plant Caretaker Relationship Specialty Start Date End Date Name, MD Luis Antonio [address] [place] [address] PCP - General Family Medicine 02/14/19 documented as of this encounter
--- OUTSIDE RECORDS SUMMARY | 2025-01-24 17:25 | XMS_ITS | Clinical Summary ---
Author Organization [facility] Address [address] [facility] [facility] [address] [place] [address] Care Team Providers Care Director Of Environmental Services Name Role Phone Name, Luis Antonio BERRY Primary Care Provider [phone] Allergies Active Allergy Reactions Criticality Noted Date Comments Propofol 05/10/2024 Penicillin V 07/04/2010 Other reaction(s): unspecified Medications acetaminophen (Tylenol) 500 MG tablet take 1 tablet (500MG) by oral route every 6 hours as needed 2 Active famotidine (Pepcid) 20 MG tabletIndication s:Nausea and vomiting, unspecified vomiting type Take 1 tablet (20 mg) by mouth 2 times daily for 10 days. 20 tablet 3 Active atenolol (Tenormin) 50 MG tabletIndication s:Hypertension, unspecified type TAKE 1 TABLET BY MOUTH EVERY DAY 90 tablet 1 5 Active amLODIPine (Norvasc) 10 MG tabletIndication s:Hypertension, unspecified type TAKE 1 TABLET BY MOUTH EVERY DAY 90 tablet 1 5 Active LORazepam (Ativan) 0.5 MG tablet Take 1 tablet (0.5 mg) by mouth if needed in the morning and at bedtime for anxiety (take 1 tablet 30 minutes before mri may repeat dose x 1) for up to 2 days. 30 tablet 5 Active chlorhexidine (Peridex) 0.12 % solution Use 15 mL in the mouth or throat if needed for wound care for up to 14 days. 473 mL 5 02/08/20 25 Active meloxicam (Mobic) 7.5 MG tabletIndication s:Right foot pain Take 1 tablet (7.5 mg) by mouth if needed each day for moderate pain. 15 tablet 0901/25/20 26 Active Active Problems Problem Noted Date Diagnosed Date Benign paroxysmal positional vertigo 01/24/2025 Panic 12/19/2024 Dizziness 12/13/2024 Assessment & Plan (12/13/2024 7:52 PM EDT): MRI ordered today CBC recently done hemoglobin is within normal limits Carotid ultrasound will be ordered today patient will be contacted with results ED precautions were reviewed with patient Confusion 12/13/2024 Assessment & Plan (12/13/2024 7:51 PM EDT): MRI and blood work ordered today, patient will be contacted with results Strict ED precautions were reviewed with patient I let her know if she has another episode of dizziness accompanied with confusion she will have to go immediately to the emergency room or or call the ambulance Neck pain 12/13/2024 Preop examination 03/04/2023 Assessment & Plan (03/04/2023 [...] Encounters Date Type Department Care Team Description 01/24/2025 2:30 PM EDT Office Visit [facility] [place] [address] Luis Antonio King MD Benign paroxysmal positional vertigo, unspecified laterality (Primary Dx); Right foot pain; Tooth decay 01/24/2025 Results Follow-Up [facility] [place] [address] Luis Antonio King MD XR Foot 3+ Views Right 01/24/2025 Travel 01/09/2025 Telephone [facility] [place] [address] Luis Antonio King MD Results 12/19/2024 Orders Only [facility] [place] [address] Jeane Michelle NP Panic (Primary Dx) 12/19/2024 Telephone [facility] [address] [place] [phone] Fernando, MD Luis Antonio Medication Question 12/13/2024 2:15 PM EDT Office Visit [address] [phone] Guadalupe Rodriguez MD Dizziness; Confusion; Neck pain 12/13/2024 Travel 12/13/2024 Telephone [facility] [address] [place] [address] Name, MD Luis Antonio Nurse Triage 10/26/[address] [phone] Prema Odonnell [place] december recalls from Last 3 Months Immunizations Immunization Administration Dates Next Due Hep B, Adolescent or Pediatric 12/15/2010,2010,07/18/2010 Influenza injectable quadriv alent IIV4 with preservative 02/18/2018,04/28/2016,04/30/2015 Influenza injectable quadriv alent preservative free 02/21/2020,03/09/2019 Influenza, IIV3, injectable 02/06/2014 Influenza, Split (incl. [place] antigen) 06/27/2012 MMRV 07/04/2010 Moderna Covid-19 Vaccine 12+ 09/17/2020,08/21/19 21 Pneumococcal Conjugate PCV 20 08/29/2024 Tdap 05/03/2024,07/18/2010 Varicella 07/18/2010 Social History Tobacco [...] Mass Index 24.2 01/24/2025 2:48 PM EDT Plan of Treatment Health Maintenance Due Date Last Done Comments CT Colonography 1960 Colonoscopy 1960 Colorectal Cancer Screening 1960 FIT DNA/Cologuard 1960 FIT 1960 FOBT 1960 HIV Screening 1960 Sigmoidoscopy 1960 Hepatitis C Screening 1978 Zoster Vaccines (1 of 2) 09/12/2010 Dental Oral Exam 05/15/2022 11/12/2021, 02/2019, 08/11/2016, Additional history exists Dental Prophylaxis 05/15/2022 11/12/2021, 0 02/01/2019, 06/23/2016, Additional history exists Dental X-Ray: Full Mouth 11/13/2024 11/12/2021, 06/25 COVID-19 Vaccine ( season) 2025 09/17/2020, 08/20/2020 Influenza Vaccine (#1) 2025 , 03/09/2019, 02/18/2018, Additional history exists Alcohol/Substance Use Screening 05/03/2025 05/03/2024 Depression Screening 05/03/2025 05/03/2024, 05/03/20 Dental X-Ray: Bitewings 05/11/2025 05/10/20 24, 11/12/2021, 11/30/2018, Additional history exists Tobacco Screening 12/13/2025 12/13/2024 Disability Screening 01/24/2026 01/24/2025 SDOH Screening 01/24/2026 01/24/2025 Mammogram 08/09/2026 08/09/2024, 0301/2025, 08/09/2024, Additional history exists Cervical Cancer Screening 07/17/2029 HPV/Cotest 07/17/2029 07/17/2024, 07/13/2019 Lipid Panel 07/17/2029 07/17/2024 Pap Smear 07/17/2029 07/17/2024 DTaP/Tdap/Td Vaccines (3 - Td or Tdap) 05/03/2034 05/03/2024, 07/18/2010 RSV Patients and Patients Aged 60 years or older (1 - 1-dose 75+ series) 2035 Hepatitis B Vaccines Aged Out 12/15/2010, 08/14/2010, 07/18/2010 No longer eligible based on patient's age to complete this topic Pneumococcal Vaccine: 50+ Years Completed 08/29/2024 HIB Vaccines Aged Out No longer eligi [...] age to complete this topic Meningococcal B Vaccine Aged Out No l onger eligible based on patient's age to complete [...] Procedure Name Priority Date/Time Associated Diagnosis Comments TSH W/REFLEX TO FT4 Routine 01/24/2025 3 :27 PM EDT Confusion XR CERVICAL SPINE 4V Routine 01/24/2025 2:57 PM EDT Neck pain XR FOOT 3+ VIEWS RIGHT Routine 2:53 PM EDT Right foot pain VASC US CAROTID ARTERY DUPLEX UNILATERAL LIMITED Routine 01/03/2025 Dizziness VASC US CAROTID ARTERY DUPLEX RIGHT Routine 01/03/2025 Dizziness BI MAMMOGRAM SCREENING TOMOSYNTHESIS BILATERAL Routine 08/09/2024 Breast cancer screening by mammogram LIPID PANEL, STANDARD Routine 07/17/2024 11:15 AM EST PE (physical exam), routine HPV DNA, LOW/HIGH RISK Routine 10:58 AM EST PAP SMEAR Routine 07/17/2024 10:58 AM EST Cervical cancer screening BITEWING - SINGLE RADIOGRAPHIC IMAGE Routine 05/10/2024 1:00 PM EST Rampant dental caries Dental root caries PROPHYLAXIS - ADULT Routine 11/12/2021 1 2:00 AM EDT INTRAORAL - COMPLETE SERIES OF RADIOGRAPHIC IMAGES Routine 11/12/2021 12:00 AM EDT PERIODIC ORAL EVALUATION - ESTABLISHED PATIENT Routine 11/12/2021 12:00 AM EDT from Last 3 Months or Most Recently Relevant to Health Maintenance Results * TSH W/Reflex to FT4 (01/24/2025 3:27 PM EDT) TSH reflex Free T4 0.50 0.32 - 4.0 uIU/mL [facility] Blood Venous blood specimen / Unknown 01/24/2025 3:27 PM EDT 01/24/2025 4:17 PM EDT us Guadalupe Lipscomb MD LAB BLOOD ORDERABLES Final Result Performing Organization Address City/State/[facility] Co de Phone Number [facility] [address] [place] [phone] * XR CERVICAL SPINE 4V (01/24/2025 2:57 PM EDT) Anatomical Region Laterality Modality Abdomen Radiographic Gunjan ging 01/24/2025 2:57 PM EDT Narrative 01/24/2025 4:04 PM EDT [address] [address] XRay Report Signed Patient: Mildred Treviño MR#: [id number] 7 : 1960 Acct:[id number] Age/Sex: 64 / F ADM Date: 01/24/25 Loc: [facility] Attending Dr: Guadalupe Lipscomb MD Ordering Physician: Guadalupe Rodriguez MD Date of Service: 01/24/25 Procedure(s): XR cervical spine 4V Accession Number(s): [id number] cc: Guadalupe Rodriguez MD Reason for Exam: pain EXAMINATION: XR CERVICAL SPINE CLINICAL INFORMATION: pain COMPARISON: 04/15/2022. TECHNIQUE: 3 views of the cervical spine were obtained. FINDINGS: Normal lordosis. No scoliosis. No fracture, compression deformity, or suspicious bone lesion. C1-2 articulation and craniocervical junction are intact and aligned. Normal facet alignment. Multilevel hypertrophic degenerative facet changes are present. There is disc space narrowing, moderate, at C4-5, C5-6, and C6-7. Disc spaces otherwise appear preserved. There is a 2 mm degenerative anterolisthesis of C3 on C4. No additional subluxation. The pre and paravertebral soft tissues are normal. The lung apices are clear. XR/XR cervical spine 4V IMPRESSION: 1. No acute finding of the cervical spine. 2. Moderate degenerative spondylosis most significant spanning C4-C7. This appears slightly advanced from 2021. Electronically signed by: Kyrie Rojo MD 01/24/2025 04:01 PM EDT Dictated By: Kyrie Rojo MD Signed By: <Electronically signed by Kyrie Rojo MD in OV> 01/24/25 1601 DD/ 1457 TD/TT: 01/24/25 1500 Boilermaker: Procedure Note Donotuseinterpreter, Image - 01/24/2025 [place] [address] XRay Report Signed Patient: Mildred Treviño FMR#: [id number] 7 : 1960Acct:[id number] Age/Sex: 64 / FADM Date: 01/24/25 Loc: [facility] Attending Dr: Guadalupe Lipscomb MD Ordering Physician: Guadalupe Rodriguez MD Date of Service: 01/24/25 Procedure(s): XR cervical spine 4V Accession Number(s): [id number] cc: Guadalupe Rodriguez MD Reason for Exam: pain EXAMINATION: XR CERVICAL SPINE CLINICAL INFORMATION: pain COMPARISON: 04/15/2022. TECHNIQUE: 3 views of the cervical spine were obtained. FINDINGS: Normal lordosis. No scoliosis. No fracture, compression deformity, or suspicious bone lesion. C1-2 articulation and craniocervical junction are intact and aligned. Normal facet alignment. Multilevel hypertrophic degenerative facet changes are present. There is disc space narrowing, moderate, at C4-5, C5-6, and C6-7. Disc spaces otherwise appear preserved. There is a 2 mm degenerative anterolisthesis of C3 on C4. No additional subluxation. The pre and paravertebral soft tissues are normal. The lung apices are clear. XR/XR cervical spine 4V IMPRESSION: 1. No acute finding of the cervical spine. 2. Moderate degenerative spondylosis most significant spanning C4-C7. This appears slightly advanced from 2021. Electronically signed by: Kyrie Rojo MD 01/24/2025 04:01 PM EDT RP Dictated By: Kyrie Rojo MD Signed By: <Electronically signed by Kyrie Rojo MD in OV> 01/24/25 1601 DD/ 1457 TD/TT: 01/24/25 1500 Boilermaker: us Guadalupe Lipscomb MD IMG XR PROCEDURES Fin al Result * XR Foot 3+ Views Right (01/24/2025 2:53 PM EDT) Anatomical Region Laterality Modality Lower Extremities, Foot Right Radiogra phic Imaging 01/24/2025 2:53 PM EDT Narrative 01/24/2025 3:57 PM EDT [place] [address] XRay Report Signed Patient: Mildred Treviño MR#: [id number] 7 : 1960 Acct:[id number] Age/Sex: 64 / F ADM Date: 01/24/25 Loc: [facility] Attending Dr: Guadalupe Lipscomb MD Ordering Physician: Luis Antonio King MD Date of Service: 01/24/25 Procedure(s): XR foot RT min 3V Accession Number(s): [id number] cc: Guadalupe Rodriguez MD; Name,Luis Antonio BERRY [...] Kyrie Rojo MD 01/24/2025 03:54 PM EDT RP Dictated By: Kyrie Rojo MD Signed By: <Electronically signed by Kyrie Rojo MD in OV> 01/24/25 1554 DD/ 1453 TD/TT: 01/24/25 1500 Boilermaker: Procedure Note Donotuseinterpreter, Image - 01/24/[address] [address] XRay Report Signed Patient: Mildred Treviño FMR#: [id number] 7 : 1960Acct:[id number] Age/Sex: 64 / FADM Date: 01/24/25 Loc: [facility] Attending Dr: Guadalupe Lipscomb MD Ordering Physician: Luis Antonio King MD Date of Service: 01/24/25 Procedure(s): XR foot RT min 3V Accession Number(s): [id number] cc: Guadalupe Rodriguez MD; Name,Luis Antonio BERRY [...] Kyrie Rojo MD 01/24/2025 03:54 PM EDT RP Dictated By: Kyrie Rojo MD Signed By: <Electronically signed by Kyrie Rojo MD in OV> 01/24/25 1554 DD/ 1453 TD/TT: 01/24/25 1500 Boilermaker: Luis Antonio King MD IMG XR PROCEDURES Final Result * Vascular US carotid artery duplex left (01/03/2025) us Guadalupe Lipscomb MD CV VASCULAR PROCEDURE S Final Result * Vascular US carotid artery duplex right (01/03/2025) Guadalupe Lipscomb MD CV VASCULAR PROCEDURE S Final Result [facility] [address] [place] [phone] * BI Mammogram Screening Tomosynthesis Bilateral (08/09/2024) Anatomical Region Laterality Modality Breast Bilateral Mammography Piper RM IMG BI PROCEDURES Final R esult * (ABNORMAL) Lipid Panel, Standard (07/17/2024 11:15 AM EST) Triglycerides 208(H) <150 mg/dL [facility] Comment:Desirable Triglyceri de: less than 150 mg/dLBorderline High Triglyceride 150-199 mg/dLHigh Triglyceride: 200-499 mg/dLVery High Triglyceride: greater than or equal to 5OO mg/dL Cholesterol 223(H) <200 mg/dL [facility] Comment:Desirable Cholestero l: less than 200 mg/dLBorderline High Cholesterol: 200-239 mg/dLHigh Cholesterol: greater than 239 mg/dL LDL Cholesterol Calculated 126(H) <100 mg/dL [facility] Comment:Desirable LDL: less than 100 mg/dLNear Optimal/Above Optimal LDL: 110- 129 mg/dLBorderline High LDL: 130-159 mg/dLHigh LDL: 160-189 mg/dLVery High LDL: greater than or equal to 190 mg/dL HDL Cholesterol 56 >40 mg/dL [facility] Comment:Desirable HDL: great er than 40 mg/dL Note: This HDL assay may give artificially low results in patients with liver disease. Blood Venous blood specimen / Unknown 07/17/2024 11:15 AM EST 07/17/2024 1:40 PM EST Luis Antonio King MD LAB BLOOD ORDERABLES Final Resul t Performing Organization Address [facility] Co de Phone Number [facility] [address] [place] [phone] * HPV DNA, Low/High Risk (07/17/2024 10:58 AM EST) HPV High Risk Negative Negative [facility] HPV Genotype 16 Negative Negative [facility] HPV Genotype 18 Negative Negative [facility] Comment:HPV testing performe d at [facility] (CLIA#[id number]), [address] [place] [address].Testing for HPV was performed using the [employer] FARHAN 6800system. The presence of HPV in the female genital tract isassociated with a number of diseases, including cervicalcarcinoma. The HPV DNA high risk pool tests for HPV 31, 33,35, 39, 45, 51, 52, 56, 58, 59, 66 and 68. The testing forHPV 16 and 18 genotypes has also been performed. A positiveresult indicates detection of nucleic acid sequences fromone or more subtypes, whereas a negative result indicatessuch sequences were not detected. 07/17/2024 10:5 8 AM EST 07/18/2024 7:10 AM EST Piper RM LAB BLOOD ORDERABLES Arlene l Result Performing Organization Address City/[facility]/ZIP Co de Phone Number [facility] [address] [place] [phone] * Pap Smear (07/17/2024 10:58 AM EST) Swab Cervix uteri structure / Unknown 07/17/2024 10:58 AM EST 07/18/2024 7:10 AM EST Narrative [facility] - 07/20/2024 3:32 PM EST ----- ------- Name: Mildred Treviño Age/Sex: 64/F : 1960 Unit#: [id number] Attend Dr: PIPER DWYER CNM Re07/17/24 Status: DEP REF Location: [facility] Disch: ----- ------- SPEC : [id number] RECD: 07/18/24 STATUS: JUAN RAMON MELTON NUM: [id number] LAYA: 07/17/24-[address] [facility] [address]: PIPER DWYER ENTERED: 07/18/244 SP TYPE: Pap Smr OTHR DR: ORDERED: Pap Smear, PAP path review Interpretation General Category: Negative for intraepithelial lesion/malignancy. Adequacy: Endocervical component present. Interpretation: Inflammation with associated cellular changes. HPV High Risk: Negative HPV Genotyping 16: Negative HPV Genotyping 18: Negative This case was reviewed intradepartmentally. Clinical Information LMP: Postmenopausal Previous PAP test: WNL Material Received ThinPrep-Cervical ----- ------- Signed (signature on file) Costa Green MD 07/20/24 1532 ----- ------- END OF REPORT us Piper Dwyer [facility] CYTOLOGY ORDERABLES F inal Result [facility] [address] [place] [address] [phone] from Last 3 Months or Most Recently Relevant to Health Maintenance Insurance [place] [id number] [place] [phone] [facility] [employer] [facility] [place] [facility] [employer] STAND ADULT [address] [place] [id number] Care Teams Director Of Environmental Services Relationship Specialty Start Date End Date Name, MD Luis Antonio [address] [place] [address] PCP - General Family Medicine 02/14/19
--- OUTSIDE RECORDS SUMMARY | 2025-01-24 17:25 | XMS_ITS | Encounter Summary ---
Author Organization [employer] Address [address] [place] [address] Care Team Providers Care Sign Poster Name Role Phone Name, Luis Antonio BERRY Primary Care Provider [phone] Encounter Details Date Type Department Care Team (Late st Contact Info) Description 05/05/2022 Orders Only [facility] [address] [place] [address] Ana Gandara LPN Social History Tobacco Use [...] on filedocumented in this encounter Care Teams Sign Poster Relationship Specialty Start Date End Date Name, MD Luis Antonio [address] [place] [address] PCP - General Family Medicine 02/14/19 documented as of this encounter
--- OUTSIDE RECORDS SUMMARY | 2025-01-24 17:25 | XMS_ITS | Encounter Summary ---
Author Organization [facility] Address [address] [facility] [address] [place] [address] Care Team Providers Care Director Of Strategic Marketing Name Role Phone Name, Luis Antonio BERRY Primary Care Provider [phone] Reason for Visit * Reason Comments Med Refill Encounter Details Date Type Department Care Team (Late st Contact Info) Description 06/01/2022 Refill [facility] [address] [place] [address] [phone] Name, MD Luis Antonio [address] [place] [phone] Chronic diarrhea Social History Tobacco Use Types [...] Diarrhea documented in this encounter Care Teams Director Of Strategic Marketing Relationship Specialty Start Date End Date Name, MD Luis Antonio [address] [place] [phone] PCP - General Family Medicine 02/14/19 documented as of this encounter
--- OUTSIDE RECORDS SUMMARY | 2025-01-24 17:25 | XMS_ITS | Clinical Summary ---
Author Organization [facility] Address [address] [place] [address] Phone Care Team Providers Care Senior Insight Manager International Name Role Phone Name, Luis Antonio BERRY Primary Care Provider [phone] Encounters Date Type Department Care Team Description 01/03/2025 11:00 AM EDT - 01/03/2025 11:59 PM EDT Hospital Encounter [facility] Ultrasound [address] [place] [id number] Dizziness Discharge Disposition: Home or Self Care 12/22/2024 6:30 PM EDT - 12/22/2024 11:59 PM EDT Hospital Encounter [facility] MRI [address] [place] [id number] Dizziness and giddiness Discharge Disposition: Home or Self Care from Last 3 Months Social History Tobacco Use Types Packs/Day Years Used Date Smoking Tobacco: Never Assessed Comments No Sex and Gender Information Value Date Recorded Sex Assigned at Not on file Legal Sex Female 7:13 PM EST Gender Identity Not on file Sexual Orientation Not on file Obstetrics History Para Term AB IAB SAB Ectopic Multiple Livin g Live Births 2 Last Filed Vital Signs Vital Sign Reading Time Taken Comments Blood Pressure - - Pulse - - Temperature - - Respiratory Rate - - Oxygen Saturation - - Inhaled Oxygen Concentration - - Weight 68 kg (150 lb) 08/09/2024 11:09 AM EDT Height 172.7 cm (5' 8 ) 08/09/2024 11:09 AM EDT Body Mass Index 22.81 08/09/2024 11:09 AM EDT Plan of Treatment Health Maintenance Due Date Last Done Comments Zoster Vaccines (1 of 2) 09/12/2010 07/18/2010, 06/24 Colorectal Cancer Screening: Colonoscopy 04/25/2022 HIV Screening 04/25/2022 Hepatitis C Screening 04/25/2022 Social Influencers of Health Screening 04/25/2022 Depression Screening 05/24/2024 COVID-19 Vaccine (3 - 2024- season) 2025 09/17/2020, 08/20/2020 Influenza Vaccine (#1) 2025 , 03/09/2019, 02/18/2018, Additional history exists Hypertension/CHF/CAD Annual BMP Blood Test 07/17/2025 07/17/2024 Breast Cancer Screening 08/09/2026 08/10/19, 05/12/2023, 05/06/2022, Additional history exists Cervical Cancer Screening: Pap Smear 07/17/2027 07/17/2024 Cholesterol Screening (Lipid Panel) 07/17/2029 07/17/2024 DTaP,Tdap,and Td Vaccines (3 - Td or Tdap) 05/03/2034 05/03/2024, 07/18/2010 RSV Immunization Adult Patients (1 - 1-dose 75+ series) 2035 MMR Vaccines Aged Out 07/04/2010 No longer eligi ble based on patient's age to complete this topic Varicella Vaccines Aged Out 07/18/2010, 07/04/2010 No longer eligible based on patient's age to complete this topic Hepatitis B Vaccines Aged Out 12/15/2010, 08/14/2010, [...] Procedure Name Priority Date/Time Associated Diagnosis Comments VAS US DUPLEX CAROTID BILATERAL Routine 01/03/2025 11:30 AM EDT Dizziness MR BRAIN WO CONTRAST Routine 12/22/2024 7:30 PM EDT Dizziness and giddiness MG MAMMO DIGITAL SCREENING W HUMBERTO BILAT Routine 08/09/2024 11:30 AM EDT Encounter for screening mammogram for malignant neoplasm of breast from Last 3 Months or Most Recently Relevant to Health Maintenance Results * Vascular US duplex carotid bilateral (01/03/2025 11:30 AM EDT) Anatomical Region Laterality Modality Vascular, Abdomen Ultrasound 01/03/2025 2:18 PM EDT Impressions 01/03/2025 2:19 PM EDT No hemodynamically significant stenosis or occlusion. -------- FINAL REPORT -------- Dictated By: Yuval Steven Dictated Date: 01/03/2025 14:18 ET Assigned Physician: Yuval Steven Reviewed and Electronically Signed By: Yuval Steven Signed Date: 01/03/2025 14:19 ET Workstation ID: [id number] Transcribed By: Self Edit Transcribed Date: 01/03/2025 14:18 ET Narrative 01/03/2025 2:19 PM EDT PROCEDURE: Carotid ultrasound. HISTORY: dizziness. TECHNIQUE: Grayscale, color Doppler, and spectral Doppler ultrasound evaluation of the carotid and vertebral arteries in the neck. COMPARISON: None. FINDINGS: Grayscale ultrasound evaluation of the carotid arteries demonstrates no significant atherosclerotic plaque. Spectral Doppler evaluation demonstrates normal carotid arterial waveforms with no focally elevated peak systolic velocity to suggest a hemodynamically significant stenosis. Antegrade flow with normal spectral Doppler tracings in both vertebral arteries. Procedure Note Yuval Steven MD - 01/03/2025 PROCEDURE: Carotid ultrasound. HISTORY: dizziness. TECHNIQUE: Grayscale, color Doppler, and spectral Doppler ultrasoundevaluation of the carotid and vertebral arteries in the neck. COMPARISON: None. FINDINGS: Grayscale ultrasound evaluation of the carotid arteries demonstrates nosignificant atherosclerotic plaque. Spectral Doppler evaluationdemonstrates normal carotid arterial waveforms with no focally elevatedpeak systolic velocity to suggest a hemodynamically significantstenosis. Antegrade flow with normal spectral Doppler tracings in both vertebralarteries. IMPRESSION: No hemodynamically significant stenosis or occlusion. -------- FINAL REPORT -------- Dictated By: Yuval Steven Dictated Date: 01/03/2025 14:18 ET Assigned Physician: Yuval Steven Reviewed and Electronically Signed By: Yuval Steven Signed Date: 01/03/2025 14:19 ET Workstation ID: [id number] Transcribed By: Self Edit Transcribed Date: 01/03/2025 14:18 ET us Guadalupe Lipscomb MD CV VASCULAR PROCEDURE S Final Result * MR Brain wo Contrast (12/22/2024 7:30 PM EDT) Anatomical Region Laterality Modality Head and Neck Magnetic Resonan ce 12/26/2024 12:0 3 PM EDT Impressions 12/26/2024 12:07 PM EDT No acute findings. No mass, hemorrhage or infarct. -------- FINAL REPORT -------- Dictated By: Nhan Zhu Dictated Date: 12/26/2024 12:03 ET Assigned Physician: Nhan Zhu Reviewed and Electronically Signed By: Nhan Zhu Signed Date: 12/26/2024 12:07 ET Workstation ID: [id number] Transcribed By: Self Edit Transcribed Date: 12/26/2024 12:03 ET Narrative 12/26/2024 12:07 PM EDT HISTORY: dz. TECHNIQUE: Routine MRI of the brain without contrast. COMPARISON: None available. FINDINGS: No acute territorial infarct, mass effect, or intracranial hemorrhage. Mild scattered periventricular and subcortical white matter T2/FLAIR hyperintensities are most likely related to chronic small vessel ischemic change. No hydrocephalus. Visualized paranasal sinuses are clear. Mastoid air cells are clear. No calvarial fracture. Bilateral lens implants.. Procedure Note Nhan Zhu MD - 12/26/2024 HISTORY: dz. TECHNIQUE: Routine MRI of the brain without contrast. COMPARISON: None available. FINDINGS: No acute territorial infarct, mass effect, or intracranial hemorrhage. Mild scattered periventricular and subcortical white matter T2/FLAIRhyperintensities are most likely related to chronic small vessel ischemicchange. No hydrocephalus. Visualized paranasal sinuses are clear. Mastoid air cells are clear. No calvarial fracture. Bilateral lens implants.. IMPRESSION: No acute findings. No mass, hemorrhage or infarct. -------- FINAL REPORT -------- Dictated By: Nhan Zhu Dictated Date: 12/26/2024 12:03 ET Assigned Physician: Nhan Zhu Reviewed and Electronically Signed By: Nhan Zhu Signed Date: 12/26/2024 12:07 ET Workstation ID: [id number] Transcribed By: Self Edit Transcribed Date: 12/26/2024 12:03 ET us Guadalupe Lipscomb MD IMG MRI PROCEDURES Fi nal Result * MG Mammo Digital Screening w Humberto bilat (08/09/2024 11:30 AM EDT) Anatomical Region Laterality Modality Breast Bilateral Mammography 08/09/2024 4:12 PM EDT Impressions 08/09/2024 4:14 PM EDT No evidence of breast malignancy. BI-RADS CATEGORY: 1 - NEGATIVE RECOMMENDATION: Screening bilateral mammogram is recommended in 1 year. Mammo Location: [facility], [address] [place] [address], [id number], . -------- FINAL REPORT -------- Dictated By: Kandy Carlton Dictated Date: 08/09/2024 16:12 ET Assigned Physician: Kandy Carlton Reviewed and Electronically Signed By: Kandy Carlton Signed Date: 08/09/2024 16:14 ET Workstation ID: [id number] Transcribed By: Self Edit Transcribed Date: 08/09/2024 16:12 ET Narrative 08/09/2024 4:14 PM EDT CLINICAL: 64 years old, Female, routine annual exam. COMPARISON: 05/12/2023, 05/06/2022, 04/30/2021, 04/24/2020 and 03/17/2019 TECHNIQUE: Bilateral MLO and CC views were obtained digitally with 3-D mammogram (digital breast tomosynthesis). Computer-aided detection was utilized in evaluation of this exam (CAD). FINDINGS: There is no evidence of suspicious mass or architectural distortion. No worrisome calcifications are evident. There has been no significant change from prior exam(s). BREAST DENSITY: B - There are scattered areas of fibroglandular density. Procedure Note Kandy Carlton MD - 08/09/2024 CLINICAL: 64 years old, Female, routine annual exam. COMPARISON: 05/12/2023, 05/06/2022, 04/30/2021, 04/24/2020 and 03/17/2019 TECHNIQUE: Bilateral MLO and CC views were obtained digitally with 3-Dmammogram (digital breast tomosynthesis). Computer-aided detection wasutilized in evaluation of this exam (CAD). FINDINGS: There is no evidence of suspicious mass or architectural distortion. Noworrisome calcifications are evident. There has been no significantchange from prior exam(s). BREAST DENSITY: B - There are scattered areas of fibroglandular density. IMPRESSION: No evidence of breast malignancy. BI-RADS CATEGORY: 1 - NEGATIVE RECOMMENDATION: Screening bilateral mammogram is recommended in 1 year. Mammo Location: [facility], [address] [place] [address], [id number], . -------- FINAL REPORT -------- Dictated By: Kandy Carlton Dictated Date: 08/09/2024 16:12 ET Assigned Physician: Kandy Carlton Reviewed and Electronically Signed By: Kandy Carlton Signed Date: 08/09/2024 16:14 ET Workstation ID: [id number] Transcribed By: Self Edit Transcribed Date: 08/09/2024 16:12 ET Nohemy MR IMG BI PROCEDURES Final R esult from Last 3 Months or Most Recently Relevant to Health Maintenance Insurance MEDICAID - [place] Care Teams Senior Insight Manager International Relationship Specialty Start Date End Date Name, MD Luis Antonio [address] [place] [address] PCP - General Internal Medicine 08/09/24
--- OUTSIDE RECORDS SUMMARY | 2025-01-24 17:25 | XMS_ITS | Encounter Summary ---
Author Organization [employer] Address [address] [facility] [facility] [address] [place] [address] Care Team Providers Care Machine Chocolate Molder Name Role Phone Name, Luis Antonio BERRY Primary Care Provider [phone] Encounter Details Date Type Department Care Team (Late st Contact Info) Description 01/24/2025 Results Follow-Up [facility] MEDIC[facility] [address] [place], [place] [id number] Name, MD Luis Antonio [address] [place] [address] XR Foot 3+ Views Right Social History Tobacco Use Types Packs/Day Years [...] encounter Miscellaneous Notes * Telephone Encounter - Iris Escobedo RN - 01/24/2025 4:19 PM EDT Tc to pt to let them know per PCP Please call the patient and let her know her foot X-ray is normal . Pt significant other answered, reported pt is not home but they will have pt return the call back to the [facility]. No further questions or concerns at this time. * Telephone Encounter - Iris Escobedo RN - 01/24/2025 4:19 PM EDT ----- Message from Luis Antonio King MD sent at 01/24/2025 3:59 PM EDT ----- Please call the patient and let her know her foot X-ray is normal ----- Message ----- From: Interface, Ris Results In Sent: 01/24/2025 3:57 PM EDT To: Luis Antonio King MD documented in this encounter Plan of Treatment Not on file documented as of this encounter Visit Diagnoses Not on filedocumented in this encounter Additional Health Concerns Assessment Noted Time PHQ-9 Depression Total Score: 2 05/03/20 24 3:28 PM EST documented as of this encounter Care Teams Machine Chocolate Molder Relationship Specialty Start Date End Date Luis Antonio King MD [address] [place] [address] PCP - General Family Medicine 02/14/19 documented as of this encounter
--- OUTSIDE RECORDS SUMMARY | 2025-01-24 17:25 | XMS_ITS | Encounter Summary ---
Author Organization [employer] Address [address] [place] [address] Care Team Providers Care Mems Device Scientist Name Role Phone Name, Luis Antonio BERRY Primary Care Provider [phone] Encounter Details Date Type Department Care Team (Latest Contact Info) Description 01/24/2025 Travel Social History Tobacco Use Types Packs/Day [...] documented as of this encounter Care Teams Mems Device Scientist Relationship Specialty Start Date End Date Name, MD Luis Atnonio [address] [place] [address] PCP - General Family Medicine 02/14/19 documented as of this encounter
--- OUTSIDE RECORDS SUMMARY | 2025-01-24 17:25 | XMS_ITS | Encounter Summary ---
Author Organization [employer] Address [address] [facility] [address] [place] [address] Care Team Providers Care Trauma Nurse Name Role Phone Name, Luis Antonio BERRY Primary Care Provider [phone] Encounter Details Date Type Department Care Team (Latest Contact Info) Description 11/12/2021 Abstract [facility] CONVERSIONS Dental, Provider, DDS Social History [...] on filedocumented in this encounter Care Teams Trauma Nurse Relationship Specialty Start Date End Date Name, MD Luis Antonio [address] [place] [address] PCP - General Family Medicine 02/14/19 documented as of this encounter
== END 2025-01-24 15:21 | disposition home or self-care (01) ==
LOC: HO.HHCL 15:20
PROVIDERS: PCP Internal Medicine; Referring Provider Internal Medicine Geriatric Medicine; Visit Provider Internal Medicine
DX: Z11.3 Encounter for screening for infections with a predominantly sexual mode of transmission (principal); M79.671 Pain in right foot; M54.2 Cervicalgia; R41.0 Disorientation, unspecified
CPT/HCPCS: 36415; 72050; 73630; 82607; 82746; 84443; 86592

== ENCOUNTER → 2025-01-24 15:33 | Outpatient (BNV) | payer MEDICAID, SELFPAY | PROVIDERS: PCP Internal Medicine; Referring Provider Internal Medicine Geriatric Medicine; Visit Provider Radiology Diagnostic Radiology | DX: M47.812 Spondylosis without myelopathy or radiculopathy, cervical region (principal); M79.671 Pain in right foot | CPT/HCPCS: 72050; 73630 ==